=== PATIENT | male | born 1970 | race Caucasian/White ===

== ENCOUNTER 2018-06-17 12:05 | Emergency (ER) | payer OTHER, SELFPAY ==
[2018-06-17 12:07] VITALS: BP 150/90; PULSE 109; RESP 16; TEMP 36.4; O2SAT 98; BMI 27.8
[2018-06-17 13:07] VITALS: BP 138/87; PULSE 88; RESP 14; TEMP 36.8; O2SAT 98
[2018-06-17] MEDS: Cefazolin 2 GM in 0.9% Normal Saline 100 ML IV (13:07)
[2018-06-17 13:09] LABS: Absolute Lymphocyte Count 0.92 X10^3/ul (0.83-4.51); Basophil# 0.02 X10^3/uL; Basophil% 0.8 % (0-1); Eosinophil# 0.16 X10^3/uL; Eosinophils% 6.7 % (0-5); Hematocrit 40.6 % (40-54); Hemoglobin 14.1 g/dl (13.0-16.5); Lymphocyte # 0.92 X10^3/ul (4.0); Lymphocyte % 38.5 % (19-41); Mean Corp Hgb Conc 34.7 g/gl (32-36); Mean Corpuscular Hgb 34.4 pg (27.0-32.0); Monocyte# 0.28 X10^3/uL; Monocyte% 11.7 % (0-10); Neutrophil % 41.9 % (47-70); Platelet Count 54 K/mm3 (150-450); RBC Distribution Width CV 12.1 % (11.6-14.6); RBC Distribution Width SD 42.9 fl (35.1-43.9); White Blood Count 2.4 K/mm3 (4.4-11.0)
[2018-06-17 13:11] LABS: Differential Indicated SCAN CRITERIA MET; POSITIVE COUNT NO; POSITIVE DIFFERENTIAL YES; POSITIVE MORPHOLOGY NO
[2018-06-17 13:18] LABS: Anion Gap 4 (5-15); BUN 12 mg/dL (7-18); BUN/Creat Ratio 17.4 RATIO (10-20); Chloride 105 mmol/L (98-107); Creatinine, Serum 0.69 mg/dL (0.70-1.30); EST Glomerular Filtration Rate 130 mL/min (>60); Est Glom Filt Rate - Afr Amer 157 mL/min (>60); Estimated Creatinine Clearance 139.44 ml/min; Glucose 220 mg/dL (74-106); Potassium 3.6 mmol/L (3.5-5.1); Sodium Level 136 mmol/L (136-145)
[2018-06-17 13:35] LABS: Differential Comment SCANNED
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
[2018-06-17 13:51] VITALS: BP 139/88; PULSE 96; RESP 16; O2SAT 98
[2018-06-17] MEDS: Acetaminophen 500 MG Tablet 1000 MG PO (13:51)
[2018-06-17 14:27] VITALS: BP 126/85; PULSE 87; RESP 14; O2SAT 96
== END 2018-06-17 14:28 | disposition home or self-care (01) ==
PROVIDERS: Emergency Provider Emergency Medicine
DX: T23.062A Burn of unspecified degree of back of left hand, initial encounter (principal); X08.8XXA Exposure to other specified smoke, fire and flames, initial encounter; Y93.9 Activity, unspecified; Y92.9 Unspecified place or not applicable; L03.124 Acute lymphangitis of left upper limb; K21.9 Gastro-esophageal reflux disease without esophagitis; Z72.0 Tobacco use
CPT/HCPCS: 80048; 85025; 87040; 87070; 87077; 87186; 87205; 96365; 99284

== ENCOUNTER 2018-06-24 09:47 | Emergency (ER) | payer OTHER, SELFPAY ==
[2018-06-24 09:48] VITALS: BP 137/92; PULSE 105; RESP 18; TEMP 37.9; O2SAT 98; BMI 26.4
[2018-06-24 11:04] LABS: Absolute Lymphocyte Count 0.87 X10^3/ul (0.83-4.51); Absolute Neutrophil Count 0.7 X10^3/uL (2.0-7.7); Basophil# 0.03 X10^3/uL; Basophil% 1.4 % (0-1); Eosinophil# 0.31 X10^3/uL; Hematocrit 42.3 % (40-54); Hemoglobin 14.3 g/dl (13.0-16.5); Lymphocyte # 0.87 X10^3/ul (4.0); Mean Corp Hgb Conc 33.8 g/gl (32-36); Mean Corpuscular Volume 97.7 fL (80-94); Mean Platelet Vol. 12.4 fl (6.2-12.0); Monocyte# 0.19 X10^3/uL; Monocyte% 9.2 % (0-10); Neutrophil # 0.67 X10^3/uL (2.7-7.7); Neutrophil % 32.4 % (47-70); Platelet Count 59 K/mm3 (150-450); RBC Distribution Width CV 11.9 % (11.6-14.6); Red Blood Count 4.33 M/mm3 (4.6-6.2); White Blood Count 2.1 K/mm3 (4.4-11.0)
[2018-06-24 11:08] LABS: Differential Indicated SCAN CRITERIA MET; POSITIVE COUNT NO; POSITIVE DIFFERENTIAL YES; POSITIVE MORPHOLOGY NO
[2018-06-24 11:13] LABS: Anion Gap 6 (5-15); BUN 16 mg/dL (7-18); BUN/Creat Ratio 21.1 RATIO (10-20); Calcium,Total 8.2 mg/dL (8.5-10.1); Chloride 105 mmol/L (98-107); Creatinine, Serum 0.76 mg/dL (0.70-1.30); EST Glomerular Filtration Rate 116 mL/min (>60); Est Glom Filt Rate - Afr Amer 141 mL/min (>60); Glucose 171 mg/dL (74-106); Potassium 4.1 mmol/L (3.5-5.1); Sodium Level 137 mmol/L (136-145)
[2018-06-24 11:29] LABS: Lactic Acid 1.2 mmol/L (0.4-2.0)
[2018-06-24 11:55] VITALS: BP 130/83; PULSE 89; RESP 14; O2SAT 94
--- NOTE | 2018-06-24 14:29 | ED.VIS.GEN ---
History of Present Illness Chief Complaint: Rash Informant: Patient Onset: Yesterday Context: Sudden Onset Timing: Continuous Quality: Nonpruritic erythematous rash Location: Generalized Current Severity: Moderate Maximum Severity: Moderate Worsened by: Possibly Bactrim Relieved by: Nothing Associated Symptoms: URI symptoms Past Medical History - Allergies and Home Meds Allergies/Adverse Reactions: Allergies morphine Allergy (Verified 06/24/18 09:50) Hives Primary Care Physician: Care Physician,No Primary [Primary Care Provider] - Prior records reviewed: Yes - Recent visit for skin infection that was positive for MRSA Surgical History: noncontributory Lives: Alone Smoking Status: Never smoker Alcohol: Rare Review of Systems General: Reports: Malaise. Denies: Chills, Fever, Sweats, Weight loss Eyes: Denies: Visual changes - bilaterally, Blurred Vision - bilaterally, Diplopia ENT: Reports: Rhinorrhea, Sore throat. Denies: Bilateral ear pain Cardiovascular: Denies: Chest pain, Palpitations Respiratory: Reports: Cough. Denies: Dyspnea, Sputum, Dyspnea on exertion Gastrointestinal: Denies: Abdominal pain, Nausea, Vomiting, Diarrhea, Melena, Hematochezia Genitourinary: Denies: Dysuria, Hematuria, Frequency Musculoskeletal: Denies: Back pain, Extremity Pain Skin: Reports: Rash. Denies: Wounds Neurological: Denies: Headache, Weakness, Numbness Endocrine: Denies: Polyuria, Polydipsia Hematologic: Denies: Easy bruising, Easy bleeding Allergy: Denies: Uticaria, Swelling of the mouth, Swelling of the tongue Physical Exam Vital Signs/Narrative: Vital Signs Pulse Resp BP Pulse Ox 06/24/18 11:55 89 14 130/83 H 94 Inital Vital Signs reviewed: Yes General: Well nourished, Well developed, No Acute Distress Head: Normocephalic, Atraumatic Eyes: Perrl, EOMI. Negative for: Pale conjunctiva, Scleral icterus ENT: Moist mucous membranes, TM's clear, Nasal congestion, - - No mucosal lesions were noted.. Negative for: No rhinorrhea Neck: Supple, Nontender, No lymphadenopathy, No JVD Cardiovascular: Regular rate, Regular rhythm, No murmurs, Normal S1, Normal S2 Respiratory: No distress, CTA bilaterally, Chest nontender Abdomen: Soft, Nontender, Nondistended, Normal bowel sounds, No masses. Negative for: Hepatomegaly, Splenomegaly, Mass, Pulsatile mass Back: Nontender, Normal Inspection. Negative for: CVA tenderness Extremities: Nontender, No edema. Negative for: Calf Tenderness Skin: Normal color, Rash - Blanching erythematous rash that has become confluent. There is no cervical, supraclavicular, axillary or inguinal lymphadenopathy.. Negative for: Cyanosis, Diaphoresis, Jaundice Neurological: Alert, Oriented x3, Cranial nerves II-XII grossly intact, Normal Strength, Normal Sensation, Normal DTR, Normal Gait Psychological: Normal affect, Normal Mood Diagnostic/Tx/Re-eval Laboratory Results 06/24/18 06/24/18 06/24/18 10:47 10:47 10:47 WBC 2.1 L RBC 4.33 L Hgb 14.3 Hct 42.3 MCV 97.7 H MCH 33.0 H MCHC 33.8 RDW 11.9 RDW Differential 42.0 Plt Count 59 L MPV 12.4 H Immature Gran % (Auto) 0.000 Neut % (Auto) 32.4 L Lymph % (Auto) 42.[address] [place] % (Auto) 9.2 Eos % (Auto) 15.0 H Baso % (Auto) 1.4 H Absolute Neuts (auto) 0.7 L Absolute Lymphs (auto) 0.87 Total Counted Not Reportable Differential Comment COMMENT Sodium 137 Potassium 4.1 Chloride 105 Carbon Dioxide 26.0 Anion Gap 6 BUN 16 Creatinine 0.76 Estim Creat Clear Calc 126.60 Est GFR (MDRD) Af Amer 141 Est GFR (MDRD) Non-Af 116 BUN/Creatinine Ratio 21.1 H Glucose 171 H Lactic Acid 1.2 Calcium 8.2 L - Medical Decision Making Patient has respiratory-like symptoms and may be because of his fever. Suspect rash is secondary to Bactrim. Will obtain CBC, BMP and lactate to evaluate patient. Blood cultures were obtained as well. White count is 2.1 thousand with predominance of lymphocytes and eosinophilia. Electrode panel is unremarkable. Lactate was normal. Suspect the neutropenia can be caused either by the Bactrim or viral infection. With 50% eosinophilia suspect the rash is secondary to Bactrim. Plan is to treat with H1 and H2 cornelius. He was instructed not to take Bactrim in the future. His last dose was last evening. ED Disposition - Plan for ED Patient: Disposition: Home or Assisted Living Diagnosis: Allergic drug rash, Neutropenia, drug-induced, Viral respiratory infection, Fever Instructions: ED Drug React Allergic, ED Upper Resp Infec No Abx Tx Prescriptions: Famotidine [Pepcid] 20 mg PO BID #10 tab DiphenhydrAMINE [Benadryl] 25 mg PO 4X/DAY #20 cap Referrals: Care Physician,No Primary [Primary Care Provider] - Daniel Andre MD [STAFF PHYSICIAN] - 3-5 Days Additional Instructions: You should not take sulfa-containing medication in the future. Take medication prescribed until gone. Since you do not have a position and you have medical mutual insurance you were referred to Dr. Daniel Andre for follow-up.
[2018-06-24 14:52] VITALS: BP 124/85; PULSE 106; RESP 18; O2SAT 96
== END 2018-06-24 14:53 | disposition home or self-care (01) ==
PROVIDERS: Emergency Provider Emergency Medicine
DX: L27.0 Generalized skin eruption due to drugs and medicaments taken internally (principal); D70.2 Other drug-induced agranulocytosis; R50.81 Fever presenting with conditions classified elsewhere; J98.8 Other specified respiratory disorders
CPT/HCPCS: 80048; 83605; 85025; 87040; 99284; A4216

== ENCOUNTER 2023-01-03 18:33 | Emergency (ER) | payer OTHER, SELFPAY ==
[2023-01-03 18:35] VITALS: BP 133/87; PULSE 110; RESP 16; TEMP 36.2; O2SAT 98; BMI 28.5
--- NOTE | 2023-01-03 19:53 | EDS_ITS ---
HPI History of Present Illness Chief Complaint: Cellulitis Informant: patient Onset/Context/Timing Context: Gradual Onset Timing: Continuous Quality: Dull Location: Right lower leg Worsened by: Palpation Relieved by: Rest Narrative Narrative: Patient is a with redness and warmth to his right lower leg that began yesterday. Patient states it is gradually gotten worse. Patient states it feels similar to prior episode of cellulitis. Patient describes his pain as dull. Patient states it is worse with palpation. Patient states it is better with rest. Patient denies any paresthesias or weakness. Patient denies any fevers or chills. Patient denies any trauma or injury. Patient states he has a history of HIV but has had normal viral loads and CD4 counts. [facility] Medical History (Updated 01/03/23 @ 21:[address] Daniel Hardy DO) HIV (human immunodeficiency virus infection) Medical History no medical history Home Medications cephalexin 500 mg capsule 500 mg PO Q6 #40 CAPSULES 01/03/23 [Rx Last Taken Unknown] darunavir 800 mg-cobicistat 150 mg tablet (Prezcobix) 1 tab PO DAILY 01/03/23 [History Last Taken Unknown] emtricitabine 200 mg-tenofovir alafenamide fumarate 25 mg tablet (Descovy) 1 tab PO DAILY 01/03/23 [History Last Taken Unknown] lisinopril 10 mg tablet 10 mg PO DAILY 01/03/23 [History Last Taken Unknown] Allergy/AdvReac Type Severity Reaction Status Date / Time morphine Allergy Hives Verified 01/03/23 18:37 Family History no significant family his Surgical History (Updated 01/03/23 @ 19:[address] Daniel Hardy DO) Hx of arthroscopy of right knee Surgical History no surgical history Social History (Updated 01/03/23 @ 19:[address] Daniel Hardy DO) Smoking Status: Current every day smoker tobacco type: cigarettes Smoking packs per day: 1 Smoking cigarettes per day: 20.0 ROS ROS ED Constitutional Constitutional ED: Denies chills or fever(s) Eyes Eyes: Denies blurry vision or change in vision ENT ENT ED: Denies rhinorrhea or sore throat Cardiovascular Cardiovascular: Denies chest pain or palpitations Respiratory/Chest Respiratory/Chest: Denies cough or dyspnea Gastrointestinal Gastrointestinal: Denies nausea or vomiting Genitourinary Genitourinary ED: Denies dysuria or hematuria Musculoskeletal Musculoskeletal: Denies back pain or neck pain Integumentary Reports rash; Denies abscess Neurologic Neurologic: Denies headache(s) or weakness Allergic/Immunologic Allergic/Immunologic ED: Denies mouth swelling or urticaria EXAM Physical Exam Const Vital Signs: 01/03/23 18:35 01/03/23 21:27 Temperature 97.1 F L Temperature Source Temporal Pulse Rate 110 H Respiratory Rate 16 18 Blood Pressure 133/87 H Blood Pressure Mean 102 Pulse Ox 98 Oxygen Delivery Method Room Air Positive well nourished and well developed General Appearance ED: well developed and NAD HEENT Reports moist mucous membranes Neck supple and no JVD Extremity Extremity Narrative: There is erythema and warmth over the right lower leg from the mid tibia to the ankle. There is no abscess formation. There is no induration. There is no discharge or drainage. There is tenderness to palpation over the area. Pedal pulses are equal bilaterally. Sensation was intact to light touch in all digits. Capillary refill was less than 2 seconds in all digits. General Extremety ED: Yes tenderness Neuro oriented x3, CN's II-XII intact bilaterally and no sensory deficits noted Sensorium / Orientation: alert Motor Exam: strength 5/5 throughout Psych mental status grossly normal Skin no wounds MDM MDM MDM Narrative Medical decision making narrative: Differential diagnosis includes cellulitis, and sepsis. CBC will be obtained to assess for leukocytosis and anemia. Basic metabolic profile will be obtained to assess for electrolyte abnormality and renal function. Lactate will be obtained to assess for sepsis. Blood cultures will be obtained to assess for sepsis. Lab Data Attestation: I reviewed the patient's lab results. Lab results narrative: CBC was reviewed and was essentially within normal limits. Basic metabolic profile was reviewed and was normal. Serum lactate was reviewed and was normal. Labs: Laboratory Results - last 24 hr 01/03/23 20:17 WBC 8.5 RBC 5.21 Hgb 17.0 H Hct 49.4 MCV 94.8 H MCH 32.6 H MCHC 34.4 RDW Std Deviation 39.8 RDW Coeff of Garcia 11.5 L Plt Count 180 MPV 10.0 Immature Gran % (Auto) 0.500 Neut % (Auto) 67.3 Lymph % (Auto) 22.4 [place] % (Auto) 7.1 Eos % (Auto) 1.8 Baso % (Auto) 0.9 Absolute Neuts (auto) 5.7 Absolute Lymphs (auto) 1.90 Nucleated RBC % 0 Sodium 136 Potassium 3.5 Chloride 104 Carbon Dioxide 28.0 Anion Gap 4 L BUN 14 Creatinine 0.95 Estim Creat Clear Calc 95.78 Est GFR (MDRD) Af Amer 107 Est GFR (MDRD) Non-Af 88 BUN/Creatinine Ratio 14.7 Glucose 181 H Lactic Acid 0.9 Calcium 8.9 Treatment and Re-Evaluation :: Patient was given a dose of Unasyn here. Patient is feeling better on reevaluation. Patient was given a prescription for Keflex. Patient was instructed to follow-up with his primary care physician in 5 to 7 days. Patient was instructed return if worse in any way. Patient understood and was agreeable with the plan. All questions were answered. Discharge Plan Triage Chief Complaint: Cellulitis ED Provider: Daniel Hardy Dx/Rx/DC Orders Clinical Impression: Cellulitis of right lower leg Instructions: ED Cellulitis Prescriptions: New cephalexin [cephalexin] 500 mg capsule 500 mg PO Q6 Qty: 40 0RF No Action lisinopril 10 mg tablet 10 mg PO DAILY Patient Comments: take 1 tablet by mouth once daily Descovy 200-25 mg tablet 1 tab PO DAILY Prezcobix 800-150 mg-mg tablet 1 tab PO DAILY Rx Instructions: must administer with a meal/food Primary Care Provider: Care Physician,No Primary Referrals: Germaine Thompson MD [Non-Staff] - 3-5 Days Care Physician,No Primary [Primary Care Provider] - Doctor,Your [Non-Staff] - 3-5 Days Disposition Disposition: Home, Self Care
[2023-01-03 20:27] LABS: Absolute Neutrophil Count 5.7 X10^3/uL (2.0-7.7); Basophil# 0.08 X10^3/uL; Basophil% 0.9 % (0-1); Eosinophil# 0.15 X10^3/uL; Eosinophils% 1.8 % (0-5); Hematocrit 49.4 % (40-54); Lymphocyte % 22.4 % (19-41); Mean Corp Hgb Conc 34.4 g/dL (32-36); Mean Corpuscular Hgb 32.6 pg (27.0-32.0); Mean Corpuscular Volume 94.8 fL (80-94); Monocyte% 7.1 % (0-10); NRBC Flagged by Analyzer 0 % (0-5); Neutrophil # 5.73 X10^3/uL (2.7-7.7); Neutrophil % 67.3 % (47-70); Platelet Count 180 K/mm3 (150-450); RBC Distribution Width CV 11.5 % (11.6-14.6); RBC Distribution Width SD 39.8 fl (35.1-43.9); Red Blood Count 5.21 M/mm3 (4.6-6.2); White Blood Count 8.5 K/mm3 (4.4-11.0)
[2023-01-03] MEDS: Ampicillin/Sulbactam 3 GM in 0.9% Normal Saline (100mL MB+) 100 ML IV (20:37)
[2023-01-03 20:39] LABS: Anion Gap 4 (5-15); BUN 14 mg/dL (7-18); BUN/Creat Ratio 14.7 RATIO (10-20); Calcium,Total 8.9 mg/dL (8.5-10.1); Chloride 104 mmol/L (98-107); Creatinine, Serum 0.95 mg/dL (0.70-1.30); EST Glomerular Filtration Rate 88 mL/min (>60); Est Glom Filt Rate - Afr Amer 107 mL/min (>60); Estimated Creatinine Clearance 95.78 ml/min; Glucose 181 mg/dL (74-106); Potassium 3.5 mmol/L (3.5-5.1); Sodium Level 136 mmol/L (136-145)
[2023-01-03 21:27] VITALS: RESP 18
[2023-01-03 21:30] LABS: Lactic Acid 0.9 mmol/L (0.4-1.9)
[2023-01-03 21:55] VITALS: PULSE 92; RESP 18; O2SAT 98
== END 2023-01-03 21:56 | disposition home or self-care (01) ==
PROVIDERS: Emergency Provider Emergency Medicine; Visit Provider Emergency Medicine
DX: L03.115 Cellulitis of right lower limb (principal); Z21 Asymptomatic human immunodeficiency virus [HIV] infection status; F17.210 Nicotine dependence, cigarettes, uncomplicated; Z79.899 Other long term (current) drug therapy
CPT/HCPCS: 36415; 80048; 83605; 85025; 87040; 96365; 99282; J7050; A4216; J0295

== ENCOUNTER 2023-01-07 06:14 | Emergency (ER) | payer OTHER, SELFPAY ==
[2023-01-07 06:15] VITALS: BP 133/91; PULSE 97; RESP 16; TEMP 36.6; O2SAT 98; BMI 29.4
[2023-01-07 06:17] VITALS: BP 133/91; PULSE 97; RESP 18; TEMP 36.6; O2SAT 97
[2023-01-07 06:40] LABS: Absolute Lymphocyte Count 1.69 X10^3/uL (0.83-4.51); Absolute Neutrophil Count 5.1 X10^3/uL (2.0-7.7); Basophil# 0.06 X10^3/uL; Basophil% 0.8 % (0-1); Eosinophils% 2.6 % (0-5); Hematocrit 46.6 % (40-54); Hemoglobin 16.3 g/dL (13.0-16.5); Lymphocyte # 1.69 X10^3/ul (0.83-4.51); Lymphocyte % 21.8 % (19-41); Mean Corpuscular Hgb 32.8 pg (27.0-32.0); Mean Corpuscular Volume 93.8 fL (80-94); Mean Platelet Vol. 10.1 fl (6.2-12.0); Monocyte# 0.66 X10^3/uL; Monocyte% 8.5 % (0-10); NRBC Flagged by Analyzer 0 % (0-5); Neutrophil # 5.12 X10^3/uL (2.7-7.7); Platelet Count 185 K/mm3 (150-450); RBC Distribution Width CV 11.6 % (11.6-14.6); RBC Distribution Width SD 39.6 fl (35.1-43.9); Red Blood Count 4.97 M/mm3 (4.6-6.2); White Blood Count 7.8 K/mm3 (4.4-11.0)
--- NOTE | 2023-01-07 06:55 | EDS_ITS ---
HPI History of Present Illness Chief Complaint: Cellulitis Detail of Chief Complaint: Cellulitis right lower extremity Informant: patient Onset/Context/Timing Onset: Days (January 02) Context: Sudden Onset Timing: Continuous Quality: Redness and swelling right leg Location: Right leg Current Severity: Moderate Maximum Severity: Moderate Worsened by: Nothing Relieved by: Nothing Associated Symptoms Associated Symptoms: No history of symptoms Narrative Narrative: Patient is a 52-year-old male with history of HIV. He states his viral load is 0. He does not know his CD4 count. He was seen on the . He was treated with cephalexin. Review of prior record indicates history of MRSA. He denies fever, chills night sweats. He denies headache, visual, ocular auditory symptoms. He denies cardiac or respiratory symptoms. He denies GI or symptoms. He does report mild discomfort. He has been taking his cephalexin. He was prescribed 500 mg 1 every 6 hours. Prior similar symptoms: Yes Recent Illness/Hospitalization: Yes [facility] Medical History HIV (human immunodeficiency virus infection) Home Medications cephalexin 500 mg capsule 500 mg PO Q6 #40 CAPSULES 01/03/23 [Rx Last Taken Unknown] darunavir 800 mg-cobicistat 150 mg tablet (Prezcobix) 1 tab PO DAILY 01/03/23 [History Last Taken Unknown] emtricitabine 200 mg-tenofovir alafenamide fumarate 25 mg tablet (Descovy) 1 tab PO DAILY 01/03/23 [History Last Taken Unknown] lisinopril 10 mg tablet 10 mg PO DAILY 01/03/23 [History Last Taken Unknown] doxycycline monohydrate 100 mg capsule 100 mg PO BID #14 CAPSULES 01/07/23 [Rx Last Taken Unknown] Allergy/AdvReac Type Severity Reaction Status Date / Time morphine Allergy Hives Verified 01/07/23 06:15 Surgical History Hx of arthroscopy of right knee Social History Smoking Status: Current every day smoker tobacco type: cigarettes ROS ROS ED Constitutional Constitutional ED: Denies chills, fever(s), subjective, sweats or weight loss Eyes Eyes: Denies blurry vision, change in vision or diplopia ENT ENT ED: Denies ear pain, rhinorrhea or sore throat Cardiovascular Cardiovascular: Reports other Details: There is no history medic fever, heart murmur, or SBE. ; Denies chest pain or palpitations Respiratory/Chest Respiratory/Chest: Denies cough, dyspnea or dyspnea on exertion Gastrointestinal Gastrointestinal: Denies nausea or vomiting Genitourinary Genitourinary ED: Denies dysuria, hematuria or urinary frequency Musculoskeletal Musculoskeletal: Denies arthralgias, back pain or myalgias Integumentary Reports rash Neurologic Neurologic: Denies paresthesias or weakness Endocrine Endocrinology: Denies cold intolerance or heat intolerance Hematologic/Lymphatic Hematologic/Lymphatic: Reports systems reviewed and no addt'l complaints, except as documented EXAM Physical Exam Const Vital Signs: 01/07/23 06:15 01/07/23 06:17 Temperature 98 F 98 F Temperature Source Temporal Temporal Pulse Rate 97 97 Respiratory Rate 16 18 Blood Pressure 133/91 H 133/91 H Blood Pressure Mean 105 105 Pulse Ox 98 97 Positive well nourished and well developed General Appearance ED: well developed and NAD; Negative for cyanotic, diaphoretic or pallor HEENT Reports moist mucous membranes HEENT Narrative: Head is atraumatic normocephalic. Ears normal. Nares patent. Mucosa moist. Eyes PERRL and EOMs intact bilaterally General Eye ED: Negative for pale conjunctiva or scleral icterus Neck no lymphadenopathy, supple and no JVD Chest Wall inspection of chest normal and palpation of chest normal Resp normal respiratory effort and clear to auscultation bilaterally Cardio regular rate, regular rhythm, S1 normal heart sound, S2 normal heart sound and no murmurs GI normal to inspection, nondistended, normoactive bowel sounds, non-tender, non- distended and no masses; Negative for hepatosplenomegaly Palpation: soft Back/Spine no CVA tenderness Extremity Extremity Narrative: There is of the right leg. Based on what he tells me the erythema spread medially as well as laterally. The leg is erythematous. There is slight warmth. There is no induration present no lymphangitis. There is no popliteal or inguinal lymphadenopathy. Patient does have breaks in his skin which is probably the nidus for his infection. Neuro oriented x3, CN's II-XII intact bilaterally and no sensory deficits noted Sensorium / Orientation: alert Psych mental status grossly normal Skin No no rashes or lesions noted General Skin Exam: Negative for jaundice or pallor MDM MDM MDM Narrative Medical decision making narrative: Suspect patient has MRSA infection and reason he has gotten worse even though he was prescribed antibiotic. He was placed on cephalexin which does not cover MRSA. Patient states he will not stay. Patient states he can sign out AGAINST MEDICAL ADVICE. He is willing to wait for the laboratory results. We will discuss those with him and likelihood of complications if he does sign out against medical vice and declines IV antibiotics versus p.o. Lab Data Attestation: I reviewed the patient's lab results. Lab results narrative: CBC is unremarkable. Blood sugar is elevated at 200. Patient's prior electrolyte panels reveal elevated blood sugar. Patient does not have history of diabetes. Patient was told to follow-up with his doctor for further testing. Labs: Laboratory Results - last 24 hr 01/07/23 06:28 WBC 7.8 RBC 4.97 Hgb 16.3 Hct 46.6 MCV 93.8 MCH 32.8 H MCHC 35.0 RDW Std Deviation 39.6 RDW Coeff of Garcia 11.6 Plt Count 185 MPV 10.1 Immature Gran % (Auto) 0.300 Neut % (Auto) 66.0 Lymph % (Auto) 21.8 [place] % (Auto) 8.5 Eos % (Auto) 2.6 Baso % (Auto) 0.8 Absolute Neuts (auto) 5.1 Absolute Lymphs (auto) 1.69 Nucleated RBC % 0 Sodium 135 L Potassium 3.5 Chloride 104 Carbon Dioxide 28.0 Anion Gap 3 L BUN 10 Creatinine 0.90 Estim Creat Clear Calc 101.10 Est GFR (MDRD) Af Amer 114 Est GFR (MDRD) Non-Af 94 BUN/Creatinine Ratio 11.2 Glucose 200 H Lactic Acid 1.1 Calcium 8.7 Treatment and Re-Evaluation :: Patient was formed of the results. Patient was prescribed Bactrim to take in addition to the cephalexin. Discharge Plan Triage Chief Complaint: Cellulitis ED Provider: Oren Doyle Dx/Rx/DC Orders Clinical Impression: Cellulitis of right lower leg, Nondiabetic hyperglycemia Instructions: ED Cellulitis, ED Hyperglycemia New Susp Diabetes Prescriptions: New doxycycline monohydrate 100 mg capsule 100 mg PO BID Qty: 14 0RF No Action lisinopril 10 mg tablet 10 mg PO DAILY Patient Comments: take 1 tablet by mouth once daily Descovy 200-25 mg tablet 1 tab PO DAILY Prezcobix 800-150 mg-mg tablet 1 tab PO DAILY Rx Instructions: must administer with a meal/food cephalexin [cephalexin] 500 mg capsule 500 mg PO Q6 Qty: 40 0RF Primary Care Provider: Care Physician,No Primary Referrals: Care Physician,No Primary [Primary Care Provider] - Doctor,Your [Non-Staff] - 3-5 Days Activity Restrictions/Additional Instructions: 1. Discontinue the cephalexin. 2. If you develop a red streak that is going towards her groin, temperature greater than 100, shaking chills return to the emergency department. 3. If you have significant swelling, redness or significant pain return to the emergency department immediately Disposition Disposition: Home, Self Care
[2023-01-07 06:59] LABS: Anion Gap 3 (5-15); BUN 10 mg/dL (7-18); BUN/Creat Ratio 11.2 RATIO (10-20); Calcium,Total 8.7 mg/dL (8.5-10.1); Chloride 104 mmol/L (98-107); EST Glomerular Filtration Rate 94 mL/min (>60); Est Glom Filt Rate - Afr Amer 114 mL/min (>60); Glucose 200 mg/dL (74-106); Potassium 3.5 mmol/L (3.5-5.1); Sodium Level 135 mmol/L (136-145)
[2023-01-07 07:29] LABS: Lactic Acid 1.1 mmol/L (0.4-1.9)
[2023-01-07] MEDS: Doxycycline 100 MG CAPSULE PO (07:45)
== END 2023-01-07 08:09 | disposition home or self-care (01) ==
PROVIDERS: Emergency Provider Emergency Medicine; Visit Provider Emergency Medicine
DX: L03.115 Cellulitis of right lower limb (principal); Z21 Asymptomatic human immunodeficiency virus [HIV] infection status; R73.9 Hyperglycemia, unspecified; F17.210 Nicotine dependence, cigarettes, uncomplicated; Z79.899 Other long term (current) drug therapy
CPT/HCPCS: 36415; 80048; 83605; 85025; 87040; 99283

== ENCOUNTER 2023-08-31 11:42 | Emergency (ER) | payer OTHER, SELFPAY ==
[2023-08-31 11:42] VITALS: BP 126/83; PULSE 100; RESP 16; TEMP 36.1; O2SAT 97; BMI 25.8
--- NOTE | 2023-08-31 12:09 | EX.ED.DYSGE1 ---
HPI <YAW Longoria - Last Filed: 08/31/23 14:12> History of Present Illness Chief Complaint: Rash Narrative Narrative: Patient is a 52-year-old male with history of hepatitis B, HIV, diabetes who recently had his laboratory values checked and he states all is well, he is undetectable. Patient presents to the emerged department with a rash to the right lower leg. Patient states that it started 2 days ago, with a couple red dots on his foot, in the last 24 hours, it is spread from his foot all the way to his ankle just below his knee. He states it is painful on the ankle area, there is slight swelling. He denies any concerns of allergic, he denies being outside. Denies any fever or chills. PFSH <YAW Longoria - Last Filed: 08/31/23 14:12> [facility] Medical History (Updated 08/31/23 @ 13:[address] Alistair Puentes MD) Hepatitis B Diabetes HIV (human immunodeficiency virus infection) Home Medications ?Medication ?Instructions ?Recorded ?Last Taken ?Type darunavir 800 mg-cobicistat 150 mg 1 tab PO DAILY 01/03/23 08/31/23 History tablet (Prezcobix) emtricitabine 200 mg-tenofovir 1 tab PO DAILY 01/03/23 08/31/23 History alafenamide fumarate 25 mg tablet (Descovy) lisinopril 10 mg tablet 10 mg PO DAILY 01/03/23 08/31/23 History metformin 500 mg tablet 500 mg PO BID 08/31/23 08/31/23 History prednisone 10 mg tablet 10 mg PO UD #30 tabs 08/31/23 Unknown Rx sertraline 50 mg tablet 50 mg PO DAILY 08/31/23 08/31/23 History Allergy/AdvReac Type Severity Reaction Status Date / Time morphine Allergy Hives Verified 08/31/23 11:43 Surgical History Hx of arthroscopy of right knee Social History Smoking Status: Current every day smoker tobacco type: cigarettes ROS <YAW Longoria - Last Filed: 08/31/23 14:12> ROS ED ROS Narrative Constitutional: Negative for fever, chills, weight loss, weakness Eyes: Negative for vision loss, vision change, double vision ENT: Negative for any sore throat, ear pain, congestion Cardiovascular: Negative for any chest pain, tightness, palpitations Respiratory: Negative for any cough, sputum production, hemoptysis, dyspnea, dyspnea on exertion, orthopnea Gastrointestinal: Negative for any abdominal pain, nausea, vomiting, diarrhea, constipation, blood in stool, blood in vomit : Negative for any urinary frequency, dysuria, retention, blood in urine Muscle skeletal: Negative for any neck pain, back pain. Positive for right leg pain, Neurological: Negative for any headache, syncope, dizziness Skin: Negative for any itching, abrasions, lacerations. Positive for rash to the right lower extremity Psychiatric: Negative for any depression, anxiety, stress, suicidal ideation, homicidal ideation Hematologic: Negative for any excessive bruising, easy bleeding EXAM <YAW Longoria - Last Filed: 08/31/23 14:12> Physical Exam Narrative Exam Narrative: Vital signs reviewed. HEET: Head normocephalic atraumatic, TMs clear bilaterally. Posterior pharynx is clear, moist mucous membranes. Nares clear bilaterally. Neck: Supple with no lymphadenopathy or tenderness. No signs of meningismus. Cardiac: Regular rate and rhythm no murmurs gallops or rubs, equal peripheral pulses bilaterally. Respiratory: Lungs clear to auscultation bilaterally. No chest tenderness. Abdomen: Soft, nontender, nondistended. No abdominal bruit or pulsatile masses. No hepatosplenomegaly Extremities: Patient right lower leg has a petechial rash on the lateral aspect of the foot, surrounding the ankle circumferential around up to the mid calf. There is slight spots on the left foot however there is remarkable difference of the right leg. There is slight edema around the ankle. There is tenderness along the medial malleolus where the rash is most pronounced. Patient does have some varicose veins in the right lower extremity. +2 pedal pulses. There is no significant warmth. Neuro: Cranial nerves II through XII intact, no focal neurological deficits. Skin: Clean dry and intact with no rash, purpura, petechiae, vesicles or pustules. Backs/flank: No CVA tenderness, no midline spinal tenderness, no deformity. Psych: Normal mood and affect. No SI, HI or acute psychosis. Const Vital Signs: 08/31/23 11:42 08/31/23 14:13 Temperature 97 F L 97.3 F L Temperature Source Temporal Pulse Rate 100 95 Respiratory Rate 16 18 Blood Pressure 126/83 H 124/78 H Blood Pressure Mean 97 93 Pulse Ox 97 98 Oxygen Delivery Method Room Air Positive well nourished and well developed General Appearance ED: well developed <Dr. Alistair Puentes MD - Last Filed: 08/31/23 15:16> Physical Exam Const Vital Signs: 08/31/23 11:42 08/31/23 14:13 Temperature 97 F L 97.3 F L Temperature Source Temporal Pulse Rate 100 95 Respiratory Rate 16 18 Blood Pressure 126/83 H 124/78 H Blood Pressure Mean 97 93 Pulse Ox 97 98 Oxygen Delivery Method Room Air MDM <YAW Longoria - Last Filed: 08/31/23 14:12> MDM Lab Data Labs: Laboratory Results - last 24 hr 08/31/23 12:10 WBC 7.2 RBC 4.92 Hgb 14.8 Hct 43.7 MCV 88.8 MCH 30.1 MCHC 33.9 RDW Std Deviation 39.7 RDW Coeff of Garcia 12.1 Plt Count 167 MPV 10.7 Immature Gran % (Auto) 1.500 H Neut % (Auto) 59.8 Lymph % (Auto) 25.4 [place] % (Auto) 10.4 H Eos % (Auto) 2.1 Baso % (Auto) 0.8 Absolute Neuts (auto) 4.3 Absolute Lymphs (auto) 1.84 Nucleated RBC % 0 ESR 63 H PT 14.1 INR 1.1 APTT 26.7 Sodium 132 L Potassium 4.2 Chloride 97 L Carbon Dioxide 26.0 Anion Gap 9 BUN 15 Creatinine 0.89 Estim Creat Clear Calc 102.23 Est GFR (MDRD) Af Amer 115 Est GFR (MDRD) Non-Af 95 BUN/Creatinine Ratio 16.9 Glucose 247 H Calcium 9.3 Total Bilirubin 0.80 AST 21 ALT 17 Alkaline Phosphatase 174 H C-React Prot Ext Range 62.70 H Total Protein 8.4 H Albumin 2.8 L Globulin 5.6 H Albumin/Globulin Ratio 0.5 L Treatment and Re-Evaluation :: Differential diagnosis includes however is not limited to: DIC, vasculitis, cellulitis, DVT Patient appears to be in no obvious respiratory distress, patient's vital signs are stable. Patient presents to the emerged part with right lower leg rash. This rash does appear to be vascular in nature, patient will receive a CBC, CMP, PTT/PT/INR, PTT. Patient will see blood cultures. Patient will receive a DVT study the right lower extremity. Patient CBC was unremarkable, patient's platelet count was 167, sed rate was elevated at 63, PT/INR was within normal limits, chemistries show sodium 132, glucose 247, he is diabetic. Patient's alkaline phosphatase is only elevated 174. CRP was elevated at 62.7. For this finding, we did reach out to vascular however they referred her to rheumatology. Will currently talk to her cuffer. Patient's DVT study was negative. Patient placed on a prednisone taper. Patient was discharged home. Instructed return for any worsening symptoms. <Dr. Alistair Puentes MD - Last Filed: 08/31/23 15:16> [facility] Narrative Medical decision making narrative: I have personally performed a face to face assessment of the patient and have reviewed the GIROGI Note. I performed a substantive portion of the visit including all aspects of the following. My [place]ton findings include: History is red rash started on leg 1 or 2 days ago much worse this morning. Started as a red dot on his foot. It is not painful there, but a little further up at his ankle medially he has some mild pain. No systemic symptoms or fever/chills. No injury. Now he is getting a couple of spots on his left ankle, he has no pain there. History of varicose veins in the right lower extremity. Past medical history noted. Exam is petechial rash only 1 area of tenderness in the medial aspect of the right lower leg well above the malleolus and not including it. There is no soft tissue with induration or abscess palpable here. DKA are coalescing into appropriate the lateral aspect of the foot with there is no tenderness. He is neurovascular intact distally brisk cap refill. The rash is limited to the lower leg and the foot, and there are a couple of small petechia that could have easily been mistaken for red nevi on the left ankle, no tenderness there. Varicose veins on the right lower leg are nontender but present. No calf tenderness. Medical Decison Making suspect possible vasculitis. Labs will be obtained, we will also obtain blood cultures to rule out bacteremia although he does not have any Osler's nodes on his hands or heart murmur. Will obtain PT/PTT and platelets to rule out DIC. Venous duplex ultrasound of the right lower extremity is negative for DVT or SVT including varicose veins, I reviewed the images and the report which I agree with. Reviewed labs. ESR and CRP elevated with the rest of his labs normal and somewhat of a mild monocytosis. DVT negative. As above, this is consistent with vasculitis, small vs medium size vessel involvement. Discussed with Dr. Sahu with vascular, who states usually rheumatology is the specialty that should be involved first, and they can do biopsy if it ends up being requested by them. Attempted to discuss with Dr. Wade with rheumatology but we were not able to reach her, and the patient refused to wait any longer, stating that either he would leave or we can discharge him with a prescription. I am going to put him on a prednisone taper, advised to follow up with Rheumatology [facility] and return to ER if he develops fevers or other different issues. Other additions or changes: [None] Lab Data Labs: Laboratory Results - last 24 hr 08/31/23 12:10 WBC 7.2 RBC 4.92 Hgb 14.8 Hct 43.7 MCV 88.8 MCH 30.1 MCHC 33.9 RDW Std Deviation 39.7 RDW Coeff of Garcia 12.1 Plt Count 167 MPV 10.7 Immature Gran % (Auto) 1.500 H Neut % (Auto) 59.8 Lymph % (Auto) 25.4 [place] % (Auto) 10.4 H Eos % (Auto) 2.1 Baso % (Auto) 0.8 Absolute Neuts (auto) 4.3 Absolute Lymphs (auto) 1.84 Nucleated RBC % 0 ESR 63 H PT 14.1 INR 1.1 APTT 26.7 Sodium 132 L Potassium 4.2 Chloride 97 L Carbon Dioxide 26.0 Anion Gap 9 BUN 15 Creatinine 0.89 Estim Creat Clear Calc 102.23 Est GFR (MDRD) Af Amer 115 Est GFR (MDRD) Non-Af 95 BUN/Creatinine Ratio 16.9 Glucose 247 H Calcium 9.3 Total Bilirubin 0.80 AST 21 ALT 17 Alkaline Phosphatase 174 H C-React Prot Ext Range 62.70 H Total Protein 8.4 H Albumin 2.8 L Globulin 5.6 H Albumin/Globulin Ratio 0.5 L Management Discussion w/another healthcare provider: Occupational Therapy Manager Discharge Plan Triage Chief Complaint: Rash ED Midlevel Provider: Piotr Celis ED Provider: Alistair Puentes Dx/Rx/DC Orders Clinical Impression: Vasculitis Instructions: ED Henoch-Schonlein Purpura Prescriptions: New prednisone 10 mg tablet 10 mg PO UD Qty: 30 0RF Rx Instructions: Take 4 tablets daily for 3 days, then 3 daily for 3 days, then 2 daily for 3 days, then 1 a day for 3 days No Action lisinopril 10 mg tablet 10 mg PO DAILY Patient Comments: take 1 tablet by mouth once daily Descovy 200-25 mg tablet 1 tab PO DAILY Prezcobix 800-150 mg-mg tablet 1 tab PO DAILY Rx Instructions: must administer with a meal/food metformin 500 mg tablet 500 mg PO BID sertraline 50 mg tablet 50 mg PO DAILY Primary Care Provider: Darrell Banda Referrals: Louise Davidson MD [Med Staff - News Production Supervisor] - As soon as possible Darrell Banda MD [Primary Care Provider] - Print Language: Estonian Disposition Disposition: Home, Self Care Discharge Date/Time: 08/31/23 14:15
--- NOTE | 2023-08-31 12:13 | VDLE_ITS ---
Reason For Study: RLE SWELLING RIGHT GSV is normal. CFV is compressible, spontaneous, phasic, competent and demonstrates normal augmentation. FV is compressible, spontaneous, phasic, competent and demonstrates normal augmentation. POP V is compressible, spontaneous, phasic, competent and demonstrates normal augmentation. T/P Trunk is compressible. PTV is compressible. RT PerV is compressible. Procedure This is a venous duplex using B-mode, color flow and spectral Doppler. Exam performed portable in ED. A preliminary report was called and/or faxed to Vivek Guzmán Aslanides @ 12:45 pm. VL/Venous Duplex US, Unilateral Interpretation Summary Deep veins of the right lower extremity are patent and compressible segmentally . There is no evidence of right lower extremity deep vein thrombosis. Valvular competence dre ears intact within the proximal deep venous system on the right . The right great saphenous vein a ppears patent and compressible segmentally. Ordering Physician: Piotr Celis Referring Physician: Darrell Banda Performed By: Genesis Mcclain, HAMMAD, RVT
[2023-08-31 12:25] LABS: Absolute Lymphocyte Count 1.84 X10^3/uL (0.83-4.51); Absolute Neutrophil Count 4.3 X10^3/uL (2.0-7.7); Basophil# 0.06 X10^3/uL; Basophil% 0.8 % (0-1); Eosinophil# 0.15 X10^3/uL; Eosinophils% 2.1 % (0-5); Hematocrit 43.7 % (40-54); Hemoglobin 14.8 g/dL (13.0-16.5); Lymphocyte # 1.84 X10^3/ul (0.83-4.51); Lymphocyte % 25.4 % (19-41); Mean Corp Hgb Conc 33.9 g/dL (32-36); Mean Corpuscular Hgb 30.1 pg (27.0-32.0); Mean Corpuscular Volume 88.8 fL (80-94); Mean Platelet Vol. 10.7 fl (6.2-12.0); Monocyte# 0.75 X10^3/uL; Monocyte% 10.4 % (0-10); NRBC Flagged by Analyzer 0 % (0-5); Neutrophil # 4.32 X10^3/uL (2.7-7.7); Neutrophil % 59.8 % (47-70); Platelet Count 167 K/mm3 (150-450); RBC Distribution Width CV 12.1 % (11.6-14.6); RBC Distribution Width SD 39.7 fl (35.1-43.9); Red Blood Count 4.92 M/mm3 (4.6-6.2); White Blood Count 7.2 K/mm3 (4.4-11.0)
[2023-08-31 12:40] LABS: International Normalized Ratio 1.1; Prothrombin Time (Protime)PT. 14.1 SECONDS (11.7-14.9)
[2023-08-31 12:42] LABS: Partial Thromboplast Time 26.7 Seconds (24.1-36.2)
[2023-08-31 12:44] LABS: ALB/GLOB Ratio 0.5 RATIO (0.9-2.4); AST(SGOT) 21 U/L (15-37); Alanine Aminotransfer ALT/SGPT 17 U/L (16-61); Albumin, Serum 2.8 g/dL (3.2-5.0); Alkaline Phosphatase 174 U/L (45-117); Anion Gap 9 (5-15); BUN 15 mg/dL (7-18); BUN/Creat Ratio 16.9 RATIO (10-20); Calcium,Total 9.3 mg/dL (8.5-10.1); Chloride 97 mmol/L (98-107); Creatinine, Serum 0.89 mg/dL (0.70-1.30); EST Glomerular Filtration Rate 95 mL/min (>60); Est Glom Filt Rate - Afr Amer 115 mL/min (>60); Estimated Creatinine Clearance 102.23 ml/min; Globulin 5.6 g/dL (2.2-4.2); Glucose 247 mg/dL (74-106); Potassium 4.2 mmol/L (3.5-5.1); Protein, Total 8.4 g/dL (6.4-8.2); Sodium Level 132 mmol/L (136-145)
[2023-08-31 13:07] LABS: Erythrocyte Sedimentation Rate 63 mm/hr (0-20)
[2023-08-31 14:13] VITALS: BP 124/78; PULSE 95; RESP 18; TEMP 36.3; O2SAT 98
== END 2023-08-31 14:15 | disposition home or self-care (01) ==
PROVIDERS: Nurse Practitioner; Emergency Provider Emergency Medicine; PCP Family Medicine; Visit Provider Emergency Medicine
DX: L95.8 Other vasculitis limited to the skin (principal); B20 Human immunodeficiency virus [HIV] disease; E11.10 Type 2 diabetes mellitus with ketoacidosis without coma; M79.661 Pain in right lower leg; F17.210 Nicotine dependence, cigarettes, uncomplicated; Z79.84 Long term (current) use of oral hypoglycemic drugs; Z86.19 Personal history of other infectious and parasitic diseases
CPT/HCPCS: 80053; 85025; 85610; 85652; 85730; 86140; 87040; 93971; 99282; A4216

== ENCOUNTER 2023-09-11 01:17 | Inpatient (IN) | payer OTHER, SELFPAY ==
[2023-09-11] VITALS (36 sets, daily range): BP systolic 79–143; BP diastolic 52–94; PULSE 53–118; RESP 13–22; TEMP 36.1–36.9; O2SAT 92–100; BMI 25.1; BMI 24.7
--- NOTE | 2023-09-11 | ASPIGT_PTH ---
PATIENT: JOHN ESTRADA LOC: [facility] U#:[id number] AGE/SX: 52/M ROOM: [facility] RE09/11/[address]: Dr. Daniel Tompkins DO : 1970 BED: 1 DIS: 09/13/2023 SPEC #: [id number] RECD: 09/11/23 13:42 STATUS: CHACE REDaren #: [id number] LIZET: 09/11/23 00:[address]: Daniel Tompkins DEPT: SURGICAL PATHOLOGY RECD BY: Allyssa Garvin ENTERED: 09/11/23 13:42 SP TYPE: ASP RAD OTHR DR: MD Dr. Darrell Blackwell MD Tissues: Liver, NOS Procedures: FNA Specimen Adequacy Trichrome (control) Special Stain Group II Special Stain Group I PAS Stain (control) Surgery Specimen Level IV Surgery Specimen Level V Retic (control) Iron Stain (control) Imprint (control) HEADER OPERATION: CT guided liver biopsy PRE-OP DIAGNOSIS: Liver mass TISSUE SUBMITTED: 18 gauge x7 core MICROSCOPIC DIAGNOSIS Liver, CT guided core biopsy: Well differentiated hepatocellular carcinoma with a background of cirrhosis. See comment. ARI/ 09/20/2023 COMMENT The specimen is sent to [facility] for expert opinion, reviewed by Dr. Ricci and the above diagnosis is rendered. The complete report is viewable in the patient's EMR. Immunohistochemistry ([id number]) supports the above diagnosis. Iron stain with matched control show absent iron. Trichrome, reticulin, and PAS stain with and without diastase matched controls are used in evaluation of this specimen. The specimen is evaluated at the time of biopsy by Dr. Mederos. Immediate Evaluation = Set 1- Negative for malignant cells. (2 smears) Set 2- Negative for malignant cells. (1 smear) Set 3- Negative for malignant cells. (1 smear) Case has been reviewed in consultation with Dr. Garay who concurs with the above diagnosis. IDC:AM MICROSCOPIC DESCRIPTION Slides are reviewed. GROSS DESCRIPTION Received in fixative is one container labeled with the patient's name and designated Ct guided liver biopsy. The specimen consists of multiple fragments of sharma soft tissue in aggregate 2.0 x 1.0 x 0.1cm. The entire specimen is submitted in one cassette. Four touch imprints are prepared at the time of core biopsy. ARI/ 09/11/2023 TC:0 CPT:23698,35682y8, 27368, 07639 x2
--- NOTE | 2023-09-11 | IMM_PTH ---
PATIENT: JOHN ESTRADA LOC: [facility] U#:[id number] AGE/SX: 52/M ROOM: [facility] RE09/11/[address]: Dr. Daniel Tompkins DO : 1970 BED: 1 DIS: 09/13/2023 SPEC #: [id number] RECD: 09/12/23 10:54 STATUS: CHACE REQ #: [id number] LIZET: 09/11/23 00:[address]: Daniel Tompkins DEPT: IMMUNOHISTOCHEMISTRY RECD BY: Elmer Escalante ENTERED: 09/12/23 10:56 SP TYPE: IMMUNO OTHR DR: MD Dr. Darrell Blackwell MD Tissues: Liver, NOS Procedures: RCC (add) NAPSIN A (add) CK20 (add) CK5-6 (add) CK7 (add) CK8 (add) HEP PAR (add) KI-67 (add) P53 (add) TTF1 (add) Pankeratin (initial) P40 (add) PSAP (add) PHYSICIAN & [address] [address] SPECIMEN INFORMATION: Tissue Source: Liver biopsy 18 gauge x7 cores Clinical Info: Liver mass Specimen Number: [id number] CPT code: 46850,08832o19 METHODOLOGY: Deparaffinized sections of prefer/formalin-fixed tissue or PAP/DQ stained slides are incubated with monoclonal/polyclonal antibodies/oligonucleotide probes. Localization is made via biotin free immunoperoxidase method. Appropriate controls are performed and reacted as expected. Results on target cell population are indicated in the following table: RESULTS: ANTIBODY / CLONE RESULT AE1-3 (AE1/AE3/PCK26) negative CK7 (OV-TL12/30) negative CK8 (82rirdE84) negative CK20 (KS20.8) negative TTF-1 (8G7G3/1) negative Napsin A (Rabbit Polyclonal) negative HepPar (OCh1E5) positive, focal RCC (PN-15) negative PSAP (PASE/4LJ) negative CK5-6 (D5 & 1684) negative P40 (BC28) negative P53 (DO-7) positive, focal (wild type pattern) Ki-67 (30-9) positive low, ~5% These tests were developed and their performance characteristics determined by [facility]. They may not have been cleared or approved by the U.S. Food and Drug Administration. The FDA has determined that such clearance or approval is not necessary. The above immunohistochemical/dualISH markers are ordered and reviewed by the Pathologist. INTERPRETATION: Liver mass, CT guided core biopsy: Well differentiated hepatocellular carcinoma with a background of cirrhosis. See comment. ARI/ 09/20/2023 COMMENT: The specimen is sent to [facility] for expert opinion, reviewed by Dr. Lu and the above diagnosis is rendered. Case has been reviewed in consultation with Dr. Garay who concurs with the above diagnosis. IDC:AM
--- NOTE | 2023-09-11 01:29 | CT_ITS ---
STUDY: CT ABDOMEN AND PELVIS WITH CONTRAST - URINARY TRACT REASON FOR EXAM: Male, 52 years old. RLQ pain/tend RADIATION DOSAGE (If Supplied By Facility): CTDIvol = ( 15.97 ) mGy, DLP = ( 2139.46 ) mGycm TECHNIQUE: IV 100mL Isovue-370 was administered. Transaxial images were obtained from the dome of the diaphragm to the symphysis pubis in the arterial, nephrographic and excretory phases. Multiplanar coronal and sagittal images were reformatted. The protocol utilizes one or more of the following dose reduction techniques: automated exposure control, adjustment of mA and/or kV according to patient size,and/or use of iterative reconstruction technique. COMPARISON: No relevant prior comparison study available FINDINGS: The visualized lung bases are unremarkable. The visualized portions of the heart are within normal limits. There are innumerable confluent low-attenuation lesions in the right lobe of liver, the largest measures 7.5 x 5.2 cm is near the dome in segment #7 are consistent with neoplastic process likely cholangiocarcinoma. 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 There are enlarged retroperitoneal lymph nodes and tray hepatis lymph nodes, the largest lymph node is in the celiac 1.5 x 1.5 cm. Normal gallbladder and extrahepatic biliary system. Normal spleen. Normal pancreas. Normal bilateral adrenal glands. Normal visualized stomach. Normal small intestine. Normal colon. The appendix is visualized and appears normal. Normal abdominal aorta. There are bilateral renal cysts, the largest measures 4 cm and the left kidney. Normal urinary bladder. Normal abdominal wall. Normal osseous structures. CT/Abdomen/Pelvis W IV Cont ONLY IMPRESSION: 1 - default normal Electronically Signed: Juan Medina MD at 3:47 EDT ,
--- NOTE | 2023-09-11 01:31 | ED.VIS.GI ---
HPI HPI - GI History of Present Illness Chief Complaint: Abd Pain Informant: patient Abdominal Pain/Flank Pain Onset: Days (2-3) Context: Gradual Onset Timing: Continuous Quality: Aching and Sharp Location: - (Across lower abdomen worse on the right) Current Severity: Severe Maximum Severity: Severe Worsened by: Car ride Relieved by: Nothing Nausea/Vomiting/Emesis GI Symptom: Negative for Nausea or Vomiting Diarrhea/Melena/Hematochezia GI Symptom: Positive for - (Feels constipated like he needs to have a bowel movement but is unable. No blood.); Negative for Diarrhea, Melena or Hematochezia Associated Symptoms Associated Symptoms: Negative for Dysuria, Frequency, Hematuria or Urgency Narrative Narrative: 52-year-old male has been having lower abdominal pain gradually worsening over the last few days. Feels like he may be constipated but is tried enemas and laxatives at home and they have not helped anything. No fevers, back pain, nausea or vomiting. No history of any abdominal surgeries. Patient was here 1 or 2 weeks ago for a rash on his legs that we diagnosed as vasculitis, and put him on prednisone. He states it fixed it and his legs are back to normal. He is no longer taking the prednisone. [facility] Medical History Hepatitis B Diabetes HIV (human immunodeficiency virus infection) Home Medications ?Medication ?Instructions ?Recorded ?Last Taken ?Type darunavir 800 mg-cobicistat 150 mg 1 tab PO DAILY HEPATITIS B 01/03/23 08/31/23 History tablet (Prezcobix) emtricitabine 200 mg-tenofovir 1 tab PO DAILY HIV 01/03/23 08/31/23 History alafenamide fumarate 25 mg tablet (Descovy) lisinopril 10 mg tablet 10 mg PO DAILY 01/03/23 08/31/23 History metformin 500 mg tablet 500 mg PO BID 08/31/23 08/31/23 History prednisone 10 mg tablet 10 mg PO UD #30 tabs 08/31/23 Unknown Rx sertraline 50 mg tablet 50 mg PO DAILY 08/31/23 08/31/23 History Allergy/AdvReac Type Severity Reaction Status Date / Time morphine Allergy Hives Verified 09/11/23 01:18 Surgical History Hx of arthroscopy of right knee Social History Smoking Status: Heavy Smoker (>10/day) ROS ROS ED Constitutional Constitutional ED: Denies chills or fever(s) Eyes Eyes: Denies change in vision or diplopia ENT ENT ED: Denies rhinorrhea or sore throat Cardiovascular Cardiovascular: Denies chest pain or palpitations Respiratory/Chest Respiratory/Chest: Denies cough or dyspnea Gastrointestinal Gastrointestinal: Reports as per HPI, abdominal pain and constipation; Denies diarrhea, melena, nausea or vomiting Genitourinary Genitourinary ED: Denies dysuria or hematuria Musculoskeletal Musculoskeletal: Denies back pain or neck pain Integumentary Denies abscess or rash Neurologic Neurologic: Denies headache(s), paresthesias or weakness Psychiatric Psychiatric: Denies anxiety or suicidal thoughts EXAM Physical Exam Const Vital Signs: 09/11/23 01:19 09/11/23 03:17 09/11/23 04:25 Temperature 97.8 F Temperature Source Temporal Pulse Rate 97 90 94 Respiratory Rate 22 H 17 18 Blood Pressure 138/94 H 111/85 H 123/64 H Blood Pressure Mean 108 93 83 Pulse Ox 98 95 Oxygen Delivery Method Room Air Room Air Room Air 09/11/23 06:00 09/11/23 06:45 Temperature 98.1 F Temperature Source Oral Pulse Rate 84 90 Respiratory Rate 17 18 Blood Pressure 143/85 H 114/90 H Blood Pressure Mean 104 98 Pulse Ox 93 98 Oxygen Delivery Method Room Air Room Air Positive well nourished and well developed Constitutional Narrative: In no distress but uncomfortable holding his abdomen and pain. General Appearance ED: well developed HEENT Reports moist mucous membranes normocephalic and atraumatic Eyes PERRL and EOMs intact bilaterally Neck full ROM and supple Resp normal respiratory effort and clear to auscultation bilaterally Cardio regular rate, regular rhythm and no murmurs GI non-distended GI Narrative: Tender in the right lower quadrant around McBurney's point, no guarding or rebound, no other areas of abdominal tenderness. Negative Rovsing. No upper abdominal tenderness. Auscultation: normoactive bowel sounds Palpation: soft Back/Spine no CVA tenderness General Back: other FROM Extremity normal to inspection General Extremety ED: Negative for edema, pulses abnormal or tenderness General Extremity: Negative for edema or pulses abnormal Neuro oriented x3, CN's II-XII intact bilaterally and no sensory deficits noted Sensorium / Orientation: awake and alert Motor Exam: strength 5/5 throughout Skin no rashes or lesions noted and no wounds MDM MDM MDM Narrative Medical decision making narrative: Given the patient is already tried home remedies for constipation I think performing workup including the CT to evaluate for the possibility of appendicitis is warranted. Discussed this with him and offered pain medications as well as IV fluids while obtaining testing. Even after more pain medications, patient was still in a lot of discomfort. In reviewing the lab results and the CT, I reviewed the images and report which I agree with, he appears to have multiple lesions in the liver suspicious for metastases, as well as tumor invasion into the portal vein with occlusion, and my concern is that his pain is related to the portal vein occlusion and mesenteric congestion. His total bilirubin is elevated and that is new, 1.8. I discussed with surgery, he refers to GI for consultation. I discussed with Dr. Calhoun. He states the patient does not need an ERCP necessarily since there is no CT evidence of a biliary obstruction, but he is going to need more diagnostics such as possible MRI, possible interventional radiology CT-guided biopsy of 1 of these lesions, but unlikely surgical intervention for the portal vein occlusion. He suspects the patient will need anticoagulated in the same fashion as if there was thrombosis. In wanting to consult with vascular surgery, I had to wait a couple of hours for morning shift when they would become available. In discussing with Dr. Sahu with vascular he agrees that placing the patient on heparin is indicated and recommended, that way we can temporarily discontinue it in order to obtain a biopsy if and when desired. He also agrees that generally speaking if this appears to be some type of metastatic cancer without a biliary obstruction, he would not need surgical oncology emergently, and since his pain is intractable the plan is admission. Discussed with hospitalist. Lab Data Attestation: I reviewed the patient's lab results. Labs: Laboratory Results - last 24 hr 09/11/23 09/11/23 01:34 02:01 WBC 9.9 RBC 4.56 L Hgb 13.7 Hct 41.9 MCV 91.9 MCH 30.0 MCHC 32.7 RDW Std Deviation 41.2 RDW Coeff of Garcia 12.5 Plt Count 175 MPV 11.5 Immature Gran % (Auto) 0.400 Neut % (Auto) 70.9 H Lymph % (Auto) 16.6 L [place] % (Auto) 10.1 H Eos % (Auto) 1.4 Baso % (Auto) 0.6 Absolute Neuts (auto) 7.0 Absolute Lymphs (auto) 1.65 Nucleated RBC % 0 Sodium 130 L Potassium 4.1 Chloride 97 L Carbon Dioxide 28.0 Anion Gap 5 BUN 14 Creatinine 0.82 Estim Creat Clear Calc 110.96 Est GFR (MDRD) Af Amer 125 Est GFR (MDRD) Non-Af 104 BUN/Creatinine Ratio 17.0 Glucose 391 H Calcium 8.9 Total Bilirubin 1.80 H AST 18 ALT 21 Alkaline Phosphatase 121 H Total Protein 8.0 Albumin 2.8 L Globulin 5.2 H Albumin/Globulin Ratio 0.5 L Urine Color Yellow Urine Clarity Clear Urine pH 5.0 Ur Specific [place] 1.015 Urine Protein Negative Urine Glucose (UA) 1000 H Urine Ketones Negative Urine Occult Blood 150 H Urine Nitrite Negative Urine Bilirubin Negative Urine Urobilinogen Normal Ur Leukocyte Esterase Negative Urine RBC 0 SEEN Urine WBC 0 SEEN Ur Squamous Epith Cells 0 SEEN Urine Bacteria 0 SEEN Urine Mucus 0 SEEN Radiography Diagnostic Testing: Clinical Impression(s) from Imaging Studies Abdomen/Pelvis CT 09/11/23 01:29 IMPRESSION: 1 - default normal Electronically Signed: Juan Medina MD at 3:47 EDT , ADDENDUM: 09/11/23 0896 IMPRESSION: There are innumerable confluent low-attenuation lesions in the right lobe of liver, the largest measures 7.5 x 5.2 cm is near the dome in segment #7 are consistent with neoplastic process likely cholangiocarcinoma. 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 There are enlarged retroperitoneal lymph nodes and tray hepatis lymph nodes, the largest lymph node is in the celiac 1.5 x 1.5 cm. Electronically Signed: Juan Medina MD at 4:02 EDT , Management Discussion w/another healthcare provider: Hospitalist and Cleaner Operator (Surgery Avani; GI friend; vascular [place]; IR LIBRARY PAGE) Discharge Plan Dx/Rx/DC Orders Clinical Impression: Intractable lower abdominal pain, Liver masses, Portal vein obstruction, Acquired hyperbilirubinemia Disposition Disposition: Acute Care Hospital [facility]
[2023-09-11] MEDS: Ondansetron 4 MG/2 ML Vial IV ×2 (01:43→19:29)
[2023-09-11] MEDS: fentaNYL 100 MCG/2 ML Ampul 50 MCG IV (01:43)
[2023-09-11 01:48] LABS: Absolute Lymphocyte Count 1.65 X10^3/uL (0.83-4.51); Basophil# 0.06 X10^3/uL; Basophil% 0.6 % (0-1); Eosinophil# 0.14 X10^3/uL; Eosinophils% 1.4 % (0-5); Hematocrit 41.9 % (40-54); Hemoglobin 13.7 g/dL (13.0-16.5); Lymphocyte # 1.65 X10^3/ul (0.83-4.51); Lymphocyte % 16.6 % (19-41); Mean Corp Hgb Conc 32.7 g/dL (32-36); Mean Corpuscular Volume 91.9 fL (80-94); Mean Platelet Vol. 11.5 fl (6.2-12.0); Monocyte% 10.1 % (0-10); NRBC Flagged by Analyzer 0 % (0-5); Neutrophil # 7.03 X10^3/uL (2.7-7.7); Neutrophil % 70.9 % (47-70); Platelet Count 175 K/mm3 (150-450); RBC Distribution Width CV 12.5 % (11.6-14.6); RBC Distribution Width SD 41.2 fl (35.1-43.9); Red Blood Count 4.56 M/mm3 (4.6-6.2); White Blood Count 9.9 K/mm3 (4.4-11.0)
[2023-09-11] MEDS: 0.9% Normal Saline (1000mL) 1,000 ML 125 ML IV (02:01)
[2023-09-11 02:02] LABS: ALB/GLOB Ratio 0.5 RATIO (0.9-2.4); AST(SGOT) 18 U/L (15-37); Alanine Aminotransfer ALT/SGPT 21 U/L (16-61); Albumin, Serum 2.8 g/dL (3.2-5.0); Alkaline Phosphatase 121 U/L (45-117); Anion Gap 5 (5-15); BUN 14 mg/dL (7-18); Calcium,Total 8.9 mg/dL (8.5-10.1); Chloride 97 mmol/L (98-107); Creatinine, Serum 0.82 mg/dL (0.70-1.30); EST Glomerular Filtration Rate 104 mL/min (>60); Est Glom Filt Rate - Afr Amer 125 mL/min (>60); Estimated Creatinine Clearance 110.96 ml/min; Globulin 5.2 g/dL (2.2-4.2); Glucose 391 mg/dL (74-106); Potassium 4.1 mmol/L (3.5-5.1); Sodium Level 130 mmol/L (136-145)
[2023-09-11 02:08] LABS: Bacteria 0 SEEN /hpf (None Seen); Mucous, Urine 0 SEEN /hpf (<or=2+); Red Blood Cells-Urine 0 SEEN /hpf (0-5); Squamous Epithelial Cells - UA 0 SEEN /hpf (0-5); White Blood Cells 0 SEEN /hpf (0-5)
[2023-09-11 02:11] LABS: Color, Urine Yellow (Yellow); Glucose, Dipstick 1000 mg/dl (Normal); Ketone-Dipstick Negative (Negative); Leukocyte Esterase-Dipstick Negative /ul (Negative); Nitrite-Dipstick Negative (Negative); Occult Blood-Urine 150 /ul (Negative); Protein-Dipstick Negative (Negative); Specific Gravity, Urine 1.015 (1.002-1.030); Urine Bilirubin Dipstick Negative (Negative); Urine Clarity Clear (Clear); Urine Urobilinogen Normal (Normal)
[2023-09-11] MEDS: Ketorolac 15 MG/ML Vial IV (03:21)
[2023-09-11] MEDS: HYDROmorphone 1 MG/ML Syringe IV ×2 (04:23→22:23)
[2023-09-11] MEDS: HYDROmorphone 1 MG/ML Syringe 2 MG IV (06:37)
[2023-09-11] MEDS: Heparin Injection (Vial) 5,000 UNIT/ML VIAL 6000 UNIT IV (07:50)
[2023-09-11] MEDS: HEPARIN/D5w 25,000 UNITS 25,000 UNITS/250 ML IV.SOLN. 12 UNITS CONT INF (07:50)
[2023-09-11 08:10] LABS: International Normalized Ratio 1.1; Prothrombin Time (Protime)PT. 14.5 SECONDS (11.7-14.9)
[2023-09-11 08:11] LABS: Partial Thromboplast Time 27.1 Seconds (24.1-36.2)
--- NOTE | 2023-09-11 08:13 | HP.PCM.HOS_ITS ---
[facility] - General General Date of Service: 09/11/23 Chief Complaint: abdominal pain HPI Narrative JOHN ESTRADA, is a 52 M who presents with abdominal pain. Patient has been having intermittent twinges of abdominal pain throughout his abdomen for some time now. But on Sunday, he started having worsening abdominal pain, describing it more in his right lower quadrant to right mid abdomen but that today it was more prominent in the right upper quadrant. Was so severe that he sought attention in the emergency room. Patient had a CAT scan that showed confluent low- attenuation lesions in the right lobe of the liver, largest measuring 7.5 x 5.2 cm in the near dome consistent with a neoplastic process, likely cholangiocarcinoma. Tumor extension into the portal vein with complete occlusion of the main portal vein. The ED physician spoke with general surgery who deferred to gastroenterology. Gastroenterology was recommending a CT-guided biopsy rather than ERCP for cholangiocarcinoma. Vascular surgery was contacted and recommended anticoagulation for the portal vein obstruction. Patient states that he was having a lot of abdominal pain that he would have to be prone on his knees which she developed some rug leary on his knees. [facility] Medical History Hepatitis B Diabetes HIV (human immunodeficiency virus infection) Home Medications ?Medication ?Instructions ?Recorded ?Last Taken ?Type darunavir 800 mg-cobicistat 150 mg 1 tab PO DAILY HEPATITIS B 01/03/23 08/31/23 History tablet (Prezcobix) emtricitabine 200 mg-tenofovir 1 tab PO DAILY HIV 01/03/23 08/31/23 History alafenamide fumarate 25 mg tablet (Descovy) lisinopril 10 mg tablet 10 mg PO DAILY 01/03/23 08/31/23 History metformin 500 mg tablet 500 mg PO BID 08/31/23 08/31/23 History prednisone 10 mg tablet 10 mg PO UD #30 tabs 08/31/23 Unknown Rx sertraline 50 mg tablet 50 mg PO DAILY 08/31/23 08/31/23 History Allergy/AdvReac Type Severity Reaction Status Date / Time morphine Allergy Hives Verified 09/11/23 01:18 Family History (Updated 09/11/23 @ 08:[address] Daniel Tompkins DO) Father Cancer Surgical History Hx of arthroscopy of right knee Social History (Updated 09/11/23 @ 08:[address] Daniel Tompkins DO) Smoking Status: Heavy Smoker (>10/day) alcohol intake: former ROS ROS Narrative All review of systems were negative except as mentioned above in the history of present illness and the other review of systems. Vital Signs Vital Signs Vital Signs: 09/11/23 01:19 09/11/23 03:17 09/11/23 04:25 Temperature 36.6 C Temperature Source Temporal Pulse Rate 97 90 94 Respiratory Rate 22 H 17 18 Blood Pressure 138/94 H 111/85 H 123/64 H Blood Pressure Mean 108 93 83 Pulse Ox 98 95 Oxygen Delivery Method Room Air Room Air Room Air 09/11/23 06:00 09/11/23 06:45 09/11/23 08:00 Temperature 36.7 C Temperature Source Oral Pulse Rate 84 90 95 Respiratory Rate 17 18 16 Blood Pressure 143/85 H 114/90 H 119/91 H Blood Pressure Mean 104 98 100 Pulse Ox 93 98 95 Oxygen Delivery Method Room Air Room Air Room Air 09/11/23 08:00 Temperature 36.9 C Temperature Source Pulse Rate 95 Respiratory Rate 16 Blood Pressure 119/71 Blood Pressure Mean 87 Pulse Ox 95 Oxygen Delivery Method Weight Weight: 81.8 kg Body Mass Index (BMI) 25.1 Physical Exam Const alert Constitutional Narrative: Nontoxic. Afebrile. No jaundice. HEENT normocephalic and head/scalp atraumatic Eyes Eyes Narrative: No icterus. Neck no lymphadenopathy Neck Narrative: No thyromegaly. Resp normal respiratory effort, no retractions, no use of accessory muscles and clear to auscultation bilaterally Cardio regular rate, regular rhythm, S1 normal heart sound and S2 normal heart sound GI GI Narrative: Marked hepatomegaly roughly 3 cm below the costal margin. Normal bowel sounds. Extremity normal to inspection and no clubbing, cyanosis or edema Skin Skin Narrative: Does have some abrasions on his knees. Neuro moves all extremities and no focal motor deficits Sensorium / Orientation: awake and alert Speech: speech normal Psych affect normal Results Lab / Micro Data Attestation: I reviewed the patient's lab results. 09/11/23 01:34 09/11/23 01:34 Labs: Laboratory Results - last 24 hr 09/11/23 01:34: WBC 9.9, RBC 4.56 L, Hgb 13.7, Hct 41.9, MCV 91.9, MCH 30.0, MCHC 32.7, RDW Std Deviation 41.2, RDW Coeff of Garcia 12.5, Plt Count 175, MPV 11.5, Immature Gran % (Auto) 0.400, Neut % (Auto) 70.9 H, Lymph % (Auto) 16.6 L, [place] % (Auto) 10.1 H, Eos % (Auto) 1.4, Baso % (Auto) 0.6, Absolute Neuts (auto) 7.0, Absolute Lymphs (auto) 1.65, Nucleated RBC % 0, Sodium 130 L, Potassium 4.1, Chloride 97 L, Carbon Dioxide 28.0, Anion Gap 5, BUN 14, Creatinine 0.82, Estim Creat Clear Calc 110.96, Est GFR (MDRD) Af Amer 125, Est GFR (MDRD) Non-Af 104, BUN/Creatinine Ratio 17.0, Glucose 391 H, Calcium 8.9, Total Bilirubin 1.80 H, AST 18, ALT 21, Alkaline Phosphatase 121 H, Total Protein 8.0, Albumin 2.8 L, Globulin 5.2 H, Albumin/Globulin Ratio 0.5 L 09/11/23 02:01: Urine Color Yellow, Urine Clarity Clear, Urine pH 5.0, Ur Specific [place] 1.015, Urine Protein Negative, Urine Glucose (UA) 1000 H, Urine Ketones Negative, Urine Occult Blood 150 H, Urine Nitrite Negative, Urine Bilirubin Negative, Urine Urobilinogen Normal, Ur Leukocyte Esterase Negative, Urine RBC 0 SEEN, Urine WBC 0 SEEN, Ur Squamous Epith Cells 0 SEEN, Urine Bacteria 0 SEEN, Urine Mucus 0 SEEN 09/11/23 07:28: PT 14.5, INR 1.1, APTT 27.1 Imaging Radiology Impression Abdomen/Pelvis CT 09/11/23 01:29 IMPRESSION: 1 - default normal Electronically Signed: Juan Medina MD at 3:47 EDT , ADDENDUM: 09/11/23 0409 IMPRESSION: There are innumerable confluent low-attenuation lesions in the right lobe of liver, the largest measures 7.5 x 5.2 cm is near the dome in segment #7 are consistent with neoplastic process likely cholangiocarcinoma. 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 There are enlarged retroperitoneal lymph nodes and tray hepatis lymph nodes, the largest lymph node is in the celiac 1.5 x 1.5 cm. Electronically Signed: Juan Medina MD at 4:02 EDT , Assessment & Plan Assessment/Plan (1) Liver masses: (2) Portal vein obstruction: PLAN: Plan Liver masses * Concern for neoplastic process. Possibilities include hepatocellular carcinoma, colon cancer, cholangiocarcinoma amongst many other possibilities. * Plan is for CT-guided biopsy which is scheduled for 1200 today. * Check CEA, CA 19-9 tumor markers * Consult gastroenterology. * Discussed with the patient that biopsy results will take roughly about a week to get back and he will need to follow-up with oncology as outpatient to get further staging. Portal vein obstruction * Secondary liver masses * Plan is to initiate anticoagulation. Patient did receive part of his bolus in the emergency room but that was discontinued so that he may have the biopsy. They will be resumed after appropriately safe time after the biopsy * No plans for surgery but will consult vascular surgery for recommendations. Abdominal pain * Likely secondary to above as no other etiology was identified on the CAT scan. * Pain control. Hepatitis B: continue with emtricitabine/tenofovir HIV: Continue with darunavir/Cobicistat. Follow-up with infectious disease at [facility] Diabetes mellitus type 2 * Recently diagnosed * Hold metformin for now * Sliding scale insulin * Check an A1c VTE prophylaxis: Not indicated as patient will be anticoagulated. Charges/Coding Visit Charges Inpatient E&M: 03813 Init Hosp L3
[2023-09-11] MEDS: 0.9% Saline Lock 10 ML Syringe IV ×4 (09:31→22:23)
[2023-09-11] MEDS: HYDROmorphone Inj 0.2 MG/ML SYRINGE IV ×3 (09:31→19:29)
[2023-09-11 10:03] LABS: Hemoglobin A1c 11.2 % (3.8-5.6)
[2023-09-11] MEDS: oxyCODONE 5 MG Tablet 10 MG PO ×2 (10:23→18:06)
[2023-09-11] MEDS: Lisinopril 10 MG Tablet PO (10:23)
[2023-09-11] MEDS: Insulin Lispro 100 UNIT/ML INSULN.PEN SC ×2 (10:27→17:05)
[2023-09-11 11:20] LABS: Bedside Glucose 261 mg/dL (74-106)
[2023-09-11] MEDS: Midazolam 2 MG/2 ML Syringe IV (12:16)
[2023-09-11] MEDS: 0.9% Normal Saline (250mL Bag) 250 ML 15 ML IV (12:21)
[2023-09-11] MEDS: fentaNYL 100 MCG/2 ML Ampul IV ×3 (12:22→12:52)
[2023-09-11] MEDS: Lidocaine 2% (20 ml mdv) 20 ML Vial INFILT (12:40)
--- NOTE | 2023-09-11 13:03 | PRO.PCM_ITS ---
Procedure Report Date of Procedure: 09/11/23 Assessment & Plan Assessment/Plan (1) Liver masses: PLAN: PROCEDURE: CT DIRECTED CORE LIVER BIOPSY ORDERING PROVIDER: Dr. Tompkins INDICATION: Male, 52 years old. Liver masses. PROVIDER: CELINE Calzada CONSENT: Written informed consent was obtained having explained the risks, benefits and alternatives in detail with the patient who accepted the risks and agreed to proceed. Laboratory review and clinical assessment was performed. PRE-PROCEDURE SEDATION ASSESSMENT: Current history and physical dictated by referring provider and reviewed. No clinical changes since date of exam. Patient has an ASA Class of 2. PROCEDURAL SEDATION PROTOCOL: The Drugs used were: 2 mg Versed, IV, and 75 mcg Fentanyl, IV. The sedation time was: 42 minutes, starting at 1216 and terminated at 1258. The procedural sedation protocol was independently monitored by the department nurse. RADIATION DOSAGE (If Supplied By Facility): CTDIvol = 20.43 mGy, DLP = 1202.21 mGycm Individualized dose optimization techniques were used for this CT. TECHNIQUE: The patient was placed in a supine position, with right side propped. Using CT image guidance with image documentation, a suitable location in the right lobe of the liver was identified to target previously identified masses. The skin surface was prepped with betadine and draped in a sterile fashion. 2% lidocaine was used for local anesthesia. Using a lateral approach, puncture of the liver was uneventful with an 18-gauge core needle system. 7, 18-gauge core samples were obtained, and submitted in formalin to the pathologist for further asse ssment. Pathology was also present to analyze samples for tissue confirmation. The needle was removed. An occlusive sterile dressing was applied. Patient tolerated the procedure well, and returned to the holding bay for nursing monitoring. IMPRESSION: 1. CT directed core needle biopsy of the liver mass, using CT image guidance with image documentation as described. 2. Procedural Sedation protocol utilized with independent monitoring. Procedures Radiology Radiology CT Procedures: 52208 Biopsy Liver Multi Select Codes Radiology Radiology CT Procedures: [id number] CT guidance parenchymal tissue
--- NOTE | 2023-09-11 13:17 | CT_ITS ---
STUDY: CT ABDOMEN WITHOUT CONTRAST REASON FOR EXAM: Male, 52 years old. Hypotension s/p liver biopsy RADIATION DOSAGE (If Supplied By Facility): CTDIvol = ( 11.57 ) mGy, DLP = ( 537.44 ) mGycm TECHNIQUE: Transaxial images were obtained without intravenous contrast, and without oral contrast. Sagittal and coronal images were reconstructed. Individualized dose optimization techniques were used for this CT. COMPARISON: Comparison is made with prior study dated September 11, 2023 at 2:27 AM. FINDINGS: The patient is status post right liver biopsy. There now is evidence of a small right hepatic subcapsular hematoma. Follow-up recommended. CT/Abdomen without IV Contrast IMPRESSION: Small right hepatic subcapsular hematoma following percutaneous biopsy. Follow-up recommended. The patient is stable. Electronically Signed: Fabian Garza MD at 13:40 EDT ,
[2023-09-11] MEDS: fentaNYL 100 MCG/2 ML Ampul 25 MCG IV (13:33)
[2023-09-11] MEDS: Ketorolac 30 MG/ML Syringe IV (14:08)
[2023-09-11] MEDS: Acetaminophen 325 MG Tablet 650 MG PO (16:26)
[2023-09-11 16:51] LABS: Bedside Glucose 324 mg/dL (74-106)
[2023-09-11] MEDS: Mag Hydrox/Al Hydrox/Simeth 30 ML UDC PO (21:15)
[2023-09-11 21:34] LABS: Bedside Glucose 301 mg/dL (74-106)
[2023-09-12] VITALS (10 sets, daily range): BP systolic 75–102; BP diastolic 45–66; PULSE 69–120; RESP 14–20; TEMP 36.6–36.9; O2SAT 94–98
[2023-09-12] MEDS: HYDROmorphone 1 MG/ML Syringe IV ×3 (02:54→11:18)
[2023-09-12] MEDS: 0.9% Saline Lock 10 ML Syringe IV ×2 (02:54→06:55)
[2023-09-12] MEDS: Insulin Lispro 100 UNIT/ML INSULN.PEN SC ×3 (06:23→16:41)
[2023-09-12 06:43] LABS: Absolute Lymphocyte Count 1.58 X10^3/uL (0.83-4.51); Absolute Neutrophil Count 12.4 X10^3/uL (2.0-7.7); Basophil# 0.05 X10^3/uL; Basophil% 0.3 % (0-1); Eosinophil# 0.14 X10^3/uL; Eosinophils% 0.9 % (0-5); Hematocrit 39.3 % (40-54); Hemoglobin 12.8 g/dL (13.0-16.5); Lymphocyte # 1.58 X10^3/ul (0.83-4.51); Lymphocyte % 10.2 % (19-41); Mean Corp Hgb Conc 32.6 g/dL (32-36); Mean Corpuscular Hgb 30.4 pg (27.0-32.0); Mean Corpuscular Volume 93.3 fL (80-94); Mean Platelet Vol. 11.2 fl (6.2-12.0); Monocyte# 1.27 X10^3/uL; Monocyte% 8.2 % (0-10); NRBC Flagged by Analyzer 0 % (0-5); Neutrophil # 12.42 X10^3/uL (2.7-7.7); Neutrophil % 79.9 % (47-70); Platelet Count 266 K/mm3 (150-450); RBC Distribution Width CV 12.8 % (11.6-14.6); RBC Distribution Width SD 44.1 fl (35.1-43.9); Red Blood Count 4.21 M/mm3 (4.6-6.2); White Blood Count 15.5 K/mm3 (4.4-11.0)
[2023-09-12 06:47] LABS: Bedside Glucose 302 mg/dL (74-106)
[2023-09-12] MEDS: Lisinopril 10 MG Tablet PO (08:29)
[2023-09-12] MEDS: oxyCODONE 5 MG Tablet 10 MG PO (08:29)
--- NOTE | 2023-09-12 08:59 | PN.HOSP_ITS ---
Reason for Visit Reason for Visit: Diagnoses Portal vein thrombosis (09/11/23) Hepatomegaly, not elsewhere classified (09/11/23) Subjective Subjective Still having a lot of pain in RUQ. Hydromorphone helps, but wears off quickly. Mostly in pain, 09/16. Objective Data Objective Data Vital Signs: Vital Signs Temp Pulse Resp BP Pulse Ox O2 Del Method O2 Flow Rate 36.6 C 120 H 18 102/59 L 96 Room Air 2 09/12/23 08:28 09/12/23 08:28 09/12/23 08:28 09/12/23 08:28 09/12/23 08:28 09/12/23 08:28 09/11/23 13:15 Oxygen Flow Rate (L/min) 2 Oxygen Delivery Method Room Air Weight: 80.4 kg Body Mass Index (BMI) 24.7 Intake & Output: Intake and Output for Last 24 Hours 09/10/23 09/11/23 09/12/23 23:59 23:59 23:59 Intake Total 1019.1 / 1019.1 Balance 1019.1 / 1019.1 Lab / Micro Data 09/12/23 06:10 09/12/23 06:10 Labs: Laboratory Results - last 24 hr 09/11/23 01:34: Hemoglobin A1c 11.2 H 09/11/23 10:26: POC Glucose 261 H 09/11/23 16:24: POC Glucose 324 H 09/11/23 21:14: POC Glucose 301 H 09/12/23 06:10: WBC 15.5 H, RBC 4.21 L, Hgb 12.8 L, Hct 39.3 L, MCV 93.3, MCH 30.4, MCHC 32.6, RDW Std Deviation 44.1 H, RDW Coeff of Garcia 12.8, Plt Count 266, MPV 11.2, Immature Gran % (Auto) 0.500, Neut % (Auto) 79.9 H, Lymph % (Auto) 10.2 L, [place] % (Auto) 8.2, Eos % (Auto) 0.9, Baso % (Auto) 0.3, Absolute Neuts (auto) 12.4 H, Absolute Lymphs (auto) 1.58, Nucleated RBC % 0 09/12/23 06:22: POC Glucose 302 H Radiography Diagnostic Testing: Radiology Impression Abdomen CT 09/11/23 13:17 IMPRESSION: Small right hepatic subcapsular hematoma following percutaneous biopsy. Follow-up recommended. The patient is stable. Electronically Signed: Fabian Garza MD at 13:40 EDT , Physical Exam Const alert Constitutional Narrative: uncomfortable. non-toxic. afebrile. HEENT head/scalp atraumatic and moist oral mucous membranes Resp normal respiratory effort and no retractions GI GI Narrative: hepatomegaly. ecchymosis noted a right posterior lower back. Neuro Sensorium / Orientation: awake and alert Assessment & Plan Assessment/Plan (1) Liver masses: (2) Portal vein obstruction: PLAN: Plan Liver masses * Concern for neoplastic process. Possibilities include hepatocellular carcinoma, colon cancer, cholangiocarcinoma amongst many other possibilities. * Plan is for CT-guided biopsy which is scheduled for 1200 today. * Check CEA, CA 19-9 tumor markers * Consult gastroenterology. * Discussed with the patient that biopsy results will take roughly about a week to get back and he will need to follow-up with oncology as outpatient to get further staging. Portal vein obstruction * Secondary liver masses * No plans for surgery but will consult vascular surgery for recommendations. * no anticoagulation given subcapsular hematoma at this time. Unclear timing when would be able to start. Subcapsular hematoma * 2/2 liver biopsy * now with flank ecchymosis. recheck CT. * pain worse. continue PRN oxycodone, hydromorphone. Add scheduled oxy. Abdominal pain * Likely secondary to above as no other etiology was identified on the CAT scan. * Pain control. Hepatitis B: continue with emtricitabine/tenofovir HIV: Continue with darunavir/Cobicistat. Follow-up with infectious disease at [facility] Diabetes mellitus type 2 * Recently diagnosed, uncontrolled. * Hold metformin for now * Sliding scale insulin * A1c 11.2 * start glargine 20 VTE prophylaxis: SCDs Charges/Coding Visit Charges Inpatient E&M: 14428 Subs Hosp L2
[2023-09-12 09:31] LABS: ALB/GLOB Ratio 0.5 RATIO (0.9-2.4); AST(SGOT) 122 U/L (15-37); Alanine Aminotransfer ALT/SGPT 41 U/L (16-61); Albumin, Serum 2.6 g/dL (3.2-5.0); Alkaline Phosphatase 133 U/L (45-117); Anion Gap 6 (5-15); BUN 25 mg/dL (7-18); BUN/Creat Ratio 17.2 RATIO (10-20); Calcium,Total 8.7 mg/dL (8.5-10.1); Chloride 98 mmol/L (98-107); Creatinine, Serum 1.45 mg/dL (0.70-1.30); EST Glomerular Filtration Rate 54 mL/min (>60); Est Glom Filt Rate - Afr Amer 65 mL/min (>60); Estimated Creatinine Clearance 62.75 ml/min; Globulin 5.2 g/dL (2.2-4.2); Glucose 309 mg/dL (74-106); Potassium 4.7 mmol/L (3.5-5.1); Protein, Total 7.8 g/dL (6.4-8.2); Sodium Level 130 mmol/L (136-145)
--- NOTE | 2023-09-12 10:10 | CT_ITS ---
STUDY: CT ABDOMEN AND PELVIS WITHOUT CONTRAST REASON FOR EXAM: Male, 52 years old. Abdominal pain. subcapsular hematoma. RADIATION DOSAGE (If Supplied By Facility): CTDIvol = ( 10.76 ) mGy, DLP = ( 679.90 ) mGycm TECHNIQUE: Transaxial images were obtained from the dome of the diaphragm to the symphysis pubis without oral contrast, and without intravenous contrast. Sagittal and coronal images were reconstructed. Individualized dose optimization techniques were used for this CT. COMPARISON: Comparison is made with prior examination dated September 11, 2023. FINDINGS: Linear atelectasis at the left lung base. Coronary artery calcification. The previously seen subcapsular hematoma of the liver has decreased in size. Stable hepatomegaly with diffuse abnormal densities within the liver suggestive of either metastatic disease or primary carcinoma. There is evidence of pericholecystic fluid. Small gallstones are seen along the dependent portion of the gallbladder lumen. There is mild degree of the gallbladder wall thickening. The remainder of the examination is unchanged findings suggestive of thrombus of the portal vein and lymph nodes within the mesentery. Normal bilateral adrenal glands. Normal right kidney. Normal left kidney. Normal urinary bladder. There is evidence of a increased density within the lower abdomen and upper pelvis suggestive of possible hematoma resulting from the recent liver biopsy. CT/Abdomen/Pelvis without Cont IMPRESSION: The previously seen subcapsular hepatic hematoma as decrease in size although findings suggestive of hematoma within the lower abdomen and pelvis. Small gallstones with pericholecystic fluid and gallbladder wall thickening. Hepatomegaly with diffuse abnormality in the liver as described. Electronically Signed: Fabian Garza MD at 11:11 EDT ,
[2023-09-12] MEDS: Lidocaine 5% Patch 1 PATCH TOPICAL (11:18)
[2023-09-12] MEDS: Insulin Glargine-YFGN 100 UNIT/ML Pen 20 UNIT SC (11:19)
--- NOTE | 2023-09-12 11:42 | CASEMGMT ---
CALI DEGROOT Assessment Face to Face with patient for initial transition planning/care coordination assessment. CALI CM introduced self and role at [facility], pt voices understanding. Pt is A&Ox4 and is resting comfortably in bed and is calm. Care providers, pharmacy, and demographics verified. Admitting dx: Liver Masses LACE Strata: 1 PCP: Darrell Banda Specialists: Germaine Andino (ID [facility]) Preferred Pharmacy: [facility] Insurance: [facility] Prescription Benefit: Yes LNOK: Cody Kaur (Friend) Living Arrangements: Pt lives alone on the 6th floor of an apartment complex with an elevator. Pt states that he uses the steps occasionally. ADLs/IADLs: Ind Transportation: Self DME: Denies all DME uses. Pt states that he was recently diagnosed with DM II. Pt states that he does not have supplies at home for this. Will follow up with Dr. Tompkins to sign Rx for BGM and supplies. HHC/SNF: Denies history or needs Pt?s goal: Home Plan: 6-Click is 24. Pt denies the need for additional therapy after DC at this time. Will follow for BGM and supplies. CM to follow for safe DC from [facility]. Ana Maria Muller RN, CM
[2023-09-12 12:10] LABS: Carbohydrate Ag 19-9 2261 746 U/mL (0-35); Carcinoembryonic Antigen 2.2 ng/mL (0.0-4.7)
[2023-09-12 12:28] LABS: Bedside Glucose 272 mg/dL (74-106)
[2023-09-12] MEDS: oxyCODONE HCl Cr 10 MG Tablet PO ×2 (12:32→21:59)
--- NOTE | 2023-09-12 17:31 | CON.PCM.SX_ITS ---
Assessment & Plan Assessment/Plan (1) Portal vein obstruction: PLAN: Plan When able to restart anticoagulation, recommend proceeding with lovenox therapy in the setting of malignancy. Reasonable to restart on an outpatient basis to allow more time for resolution of the subcapsular hematoma. No plans for vascular surgical intervention. HPI Consult Data Date of Consult: 09/13/23 HPI Narrative HPI Narrative: JOHN ESTRADA, is a 52 M who presented to the [facility] ED on 09/11/23 with abdominal pain. A CT was obtained which revealed multiple lesions in the liver concerning for malignancy/metastasis, tumor invasion with associated portal vein occlusion. He was admitted for further management. He was started on heparin for the portal vein thrombosis. He had a liver biopsy on 09/11/23 which was complicated by subcapsular hematoma for which the heparin has since been held. Patient reports it has been very difficult to control his pain. The opioid pain medications work fairly well but due to low BP he states he is not able to receive them often/consistently enough for consistent pain control. He does plan to follow-up with the cancer center as an outpatient for ongoing management. [facility] Medical History Hepatitis B Diabetes HIV (human immunodeficiency virus infection) Home Medications ?Medication ?Instructions ?Recorded ?Last Taken ?Type darunavir 800 mg-cobicistat 150 mg 1 tab PO DAILY HEPATITIS B 01/03/23 08/31/23 History tablet (Prezcobix) emtricitabine 200 mg-tenofovir 1 tab PO DAILY HIV 01/03/23 08/31/23 History alafenamide fumarate 25 mg tablet (Descovy) lisinopril 10 mg tablet 10 mg PO DAILY 01/03/23 08/31/23 History metformin 500 mg tablet 500 mg PO BID 08/31/23 08/31/23 History prednisone 10 mg tablet 10 mg PO UD #30 tabs 08/31/23 Unknown Rx sertraline 50 mg tablet 50 mg PO DAILY 08/31/23 08/31/23 History Allergy/AdvReac Type Severity Reaction Status Date / Time morphine Allergy Hives Verified 09/11/23 01:18 Family History (Updated 09/11/23 @ 08:[address] Daniel Tompkins DO) Father Cancer Surgical History Hx of arthroscopy of right knee Social History (Updated 09/11/23 @ 08:[address] Daniel Tompkins DO) Smoking Status: Heavy Smoker (>10/day) alcohol intake: former Physical Exam Const alert and oriented x3 General Appearance: cooperative HEENT normocephalic, head/scalp atraumatic and external nose normal Eyes EOMs intact bilaterally General Eye: normal appearance of both eyes Neck General: normal visual inspection Resp normal respiratory effort Effort and Inspection: able to speak in complete sentences Cardio Rate: regular rate Rhythm: regular rhythm Extremity normal to inspection Skin no rashes or lesions noted Neuro CN's II-XII intact bilaterally Psych mental status grossly normal and affect normal Appearance: grossly normal Lab / Micro Data 09/13/23 05:18 09/13/23 05:18 Labs: Laboratory Results - last 24 hr 09/11/23 11:30: Carcinoembryonic Ag 2.2, CA 19-9 Antigen 746 H, CA 19-9 Serial Monitor Not Reportable 09/11/23 21:14: POC Glucose 301 H 09/12/23 06:10: WBC 15.5 H, RBC 4.21 L, Hgb 12.8 L, Hct 39.3 L, MCV 93.3, MCH 30.4, MCHC 32.6, RDW Std Deviation 44.1 H, RDW Coeff of Garcia 12.8, Plt Count 266, MPV 11.2, Immature Gran % (Auto) 0.500, Neut % (Auto) 79.9 H, Lymph % (Auto) 10.2 L, [place] % (Auto) 8.2, Eos % (Auto) 0.9, Baso % (Auto) 0.3, Absolute Neuts (auto) 12.4 H, Absolute Lymphs (auto) 1.58, Nucleated RBC % 0, Sodium 130 L, Potassium 4.7, Chloride 98, Carbon Dioxide 26.0, Anion Gap 6, BUN 25 H, C reatinine 1.45 H, Estim Creat Clear Calc 62.75, Est GFR (MDRD) Af Amer 65, Est GFR (MDRD) Non-Af 54 L, BUN/Creatinine Ratio 17.2, Glucose 309 H, Calcium 8.7, T otal Bilirubin 2.80 H, AST 122 H, ALT 41, Alkaline Phosphatase 133 H, Total Protein 7.8, Albumin 2.6 L, Globulin 5.2 H, Albumin/Globulin Ratio 0.5 L 09/12/23 06:22: POC Glucose 302 H 09/12/23 12:05: POC Glucose 272 H Imaging Radiology Impression Abdomen/Pelvis CT 09/12/23 10:10 IMPRESSION: The previously seen subcapsular hepatic hematoma as decrease in size although findings suggestive of hematoma within the lower abdomen and pelvis. Small gallstones with pericholecystic fluid and gallbladder wall thickening. Hepatomegaly with diffuse abnormality in the liver as described. Electronically Signed: Fabian Garza MD at 11:11 EDT ,
[2023-09-12] MEDS: Acetaminophen 325 MG Tablet 650 MG PO (17:34)
[2023-09-12 17:53] LABS: Bedside Glucose 333 mg/dL (74-106)
[2023-09-12 22:28] LABS: Bedside Glucose 243 mg/dL (74-106)
[2023-09-13] VITALS (8 sets, daily range): BP systolic 86–114; BP diastolic 55–77; PULSE 82–110; RESP 14–16; TEMP 36.7–36.9; O2SAT 93–99
[2023-09-13] MEDS: Acetaminophen 325 MG Tablet 650 MG PO (02:05)
[2023-09-13] MEDS: oxyCODONE 5 MG Tablet 10 MG PO ×2 (02:05→13:53)
[2023-09-13] MEDS: Insulin Lispro 100 UNIT/ML INSULN.PEN SC ×2 (06:07→12:08)
[2023-09-13] MEDS: 0.9% Saline Lock 10 ML Syringe IV ×2 (06:19→08:54)
[2023-09-13] MEDS: HYDROmorphone 1 MG/ML Syringe IV (06:20)
[2023-09-13 06:28] LABS: Absolute Lymphocyte Count 1.56 X10^3/uL (0.83-4.51); Absolute Neutrophil Count 9.8 X10^3/uL (2.0-7.7); Basophil# 0.02 X10^3/uL; Basophil% 0.2 % (0-1); Eosinophil# 0.05 X10^3/uL; Eosinophils% 0.4 % (0-5); Hematocrit 31.7 % (40-54); Hemoglobin 10.4 g/dL (13.0-16.5); Lymphocyte # 1.56 X10^3/ul (0.83-4.51); Lymphocyte % 12.1 % (19-41); Mean Corp Hgb Conc 32.8 g/dL (32-36); Mean Corpuscular Hgb 30.1 pg (27.0-32.0); Mean Corpuscular Volume 91.9 fL (80-94); Mean Platelet Vol. 11.4 fl (6.2-12.0); Monocyte# 1.36 X10^3/uL; Monocyte% 10.5 % (0-10); NRBC Flagged by Analyzer 0 % (0-5); Neutrophil # 9.81 X10^3/uL (2.7-7.7); Platelet Count 178 K/mm3 (150-450); RBC Distribution Width CV 12.8 % (11.6-14.6); RBC Distribution Width SD 42.7 fl (35.1-43.9); Red Blood Count 3.45 M/mm3 (4.6-6.2); White Blood Count 12.9 K/mm3 (4.4-11.0)
[2023-09-13 06:33] LABS: Bedside Glucose 298 mg/dL (74-106)
[2023-09-13 06:58] LABS: ALB/GLOB Ratio 0.5 RATIO (0.9-2.4); AST(SGOT) 140 U/L (15-37); Alanine Aminotransfer ALT/SGPT 59 U/L (16-61); Albumin, Serum 2.3 g/dL (3.2-5.0); Alkaline Phosphatase 151 U/L (45-117); Anion Gap 9 (5-15); BUN 52 mg/dL (7-18); Calcium,Total 8.4 mg/dL (8.5-10.1); Chloride 96 mmol/L (98-107); Creatinine, Serum 2.08 mg/dL (0.70-1.30); EST Glomerular Filtration Rate 36 mL/min (>60); Est Glom Filt Rate - Afr Amer 43 mL/min (>60); Estimated Creatinine Clearance 43.74 ml/min; Globulin 4.7 g/dL (2.2-4.2); Glucose 265 mg/dL (74-106); Potassium 4.6 mmol/L (3.5-5.1); Sodium Level 127 mmol/L (136-145)
--- NOTE | 2023-09-13 08:16 | PN.HOSP_ITS ---
Reason for Visit Reason for Visit: Diagnoses Portal vein thrombosis (09/11/23) Hepatomegaly, not elsewhere classified (09/11/23) Subjective Subjective Feeling better. Eating better and drinking. Now urinating. Objective Data Objective Data Vital Signs: Vital Signs Temp Pulse Resp BP Pulse Ox O2 Del Method O2 Flow Rate 36.8 C 95 16 91/59 L 97 Room Air 2 09/13/23 04:00 09/13/23 04:00 09/13/23 04:00 09/13/23 04:00 09/13/23 04:00 09/13/23 04:00 09/11/23 13:15 Oxygen Flow Rate (L/min) 2 Oxygen Delivery Method Room Air Weight: 80.4 kg Body Mass Index (BMI) 24.7 Intake & Output: Intake and Output for Last 24 Hours 09/11/23 09/12/23 09/13/23 23:59 23:59 23:59 Intake Total 1019.1 / 1019.1 1130 / 1630 600 / 600 Balance 1019.1 / 1019.1 1130 / 1630 600 / 600 Lab / Micro Data 09/13/23 11:45 09/13/23 12:08 Labs: Laboratory Results - last 24 hr 09/11/23 11:30: Carcinoembryonic Ag 2.2, CA 19-9 Antigen 746 H, CA 19-9 Serial Monitor Not Reportable 09/12/23 06:10: Sodium 130 L, Potassium 4.7, Chloride 98, Carbon Dioxide 26.0, Anion Gap 6, BUN 25 H, Creatinine 1.45 H, Estim Creat Clear Calc 62.75, Est GFR (MDRD) Af Amer 65, Est GFR (MDRD) Non-Af 54 L, BUN/Creatinine Ratio 17.2, G lucose 309 H, Calcium 8.7, Total Bilirubin 2.80 H, AST 122 H, ALT 41, Alkaline Phosphatase 133 H, Total Protein 7.8, Albumin 2.6 L, Globulin 5.2 H, A lbumin/Globulin Ratio 0.5 L 09/12/23 12:05: POC Glucose 272 H 09/12/23 16:40: POC Glucose 333 H 09/12/23 22:03: POC Glucose 243 H 09/13/23 05:18: WBC 12.9 H, RBC 3.45 L, Hgb 10.4 L, Hct 31.7 L, MCV 91.9, MCH 30.1, MCHC 32.8, RDW Std Deviation 42.7, RDW Coeff of Garcia 12.8, Plt Count 178, MPV 11.4, Immature Gran % (Auto) 0.800, Neut % (Auto) 76.0 H, Lymph % (Auto) 12.1 L, [place] % (Auto) 10.5 H, Eos % (Auto) 0.4, Baso % (Auto) 0.2, Absolute Neuts (auto) 9.8 H, Absolute Lymphs (auto) 1.56, Nucleated RBC % 0, Sodium 127 L , Potassium 4.6, Chloride 96 L, Carbon Dioxide 22.0, Anion Gap 9, BUN 52 H, C reatinine 2.08 H, Estim Creat Clear Calc 43.74, Est GFR (MDRD) Af Amer 43 L, Est GFR (MDRD) Non-Af 36 L, BUN/Creatinine Ratio 25.0 H, Glucose 265 H, Calcium 8.4 L, Total Bilirubin 3.50 H, AST 140 H, ALT 59, Alkaline Phosphatase 151 H, Total Protein 7.0, Albumin 2.3 L, Globulin 4.7 H, Albumin/Globulin Ratio 0.5 L 09/13/23 06:06: POC Glucose 298 H Radiography Diagnostic Testing: Radiology Impression Abdomen/Pelvis CT 09/12/23 10:10 IMPRESSION: The previously seen subcapsular hepatic hematoma as decrease in size although findings suggestive of hematoma within the lower abdomen and pelvis. Small gallstones with pericholecystic fluid and gallbladder wall thickening. Hepatomegaly with diffuse abnormality in the liver as described. Electronically Signed: Fabian Garza MD at 11:11 EDT , Physical Exam Const alert and no apparent distress HEENT head/scalp atraumatic and moist oral mucous membranes Resp normal respiratory effort, no retractions, no use of accessory muscles and clear to auscultation bilaterally Cardio regular rate, regular rhythm, S1 normal heart sound and S2 normal heart sound GI normal to inspection, nondistended, normoactive bowel sounds, soft to palpation, non-tender and non-distended Neuro Sensorium / Orientation: awake and alert Assessment & Plan Assessment/Plan (1) Liver masses: (2) Portal vein obstruction: PLAN: Plan Liver masses * Concern for neoplastic process. Possibilities include hepatocellular carcinoma, colon cancer, cholangiocarcinoma amongst many other possibilities. * Plan is for CT-guided biopsy which is scheduled for 1200 today. * Check CEA, CA 19-9 tumor markers * Consult gastroenterology. * Discussed with the patient that biopsy results will take roughly about a week to get back and he will need to follow-up with oncology as outpatient to get further staging. * Follow up with [facility] oncology. Portal vein obstruction * Secondary liver masses * No plans for surgery but will consult vascular surgery for recommendations. * no anticoagulation given subcapsular hematoma at this time. I would want the patient to wait a least a week and have blood count to ensure that his hemoglobin is stable. Unclear timing when would be able to start. Subcapsular hematoma * 2/2 liver biopsy * pain worse. continue PRN oxycodone, hydromorphone. Add scheduled oxy. Abdominal pain * Likely secondary to above as no other etiology was identified on the CAT scan. * Pain control. Acute blood loss anemia * Hg dropped from 13.7 to 10.4. * 2/2 subcapsular hematoma. I suspect blood in abdomen is not spontaneous, but rather from the subcapsular hematoma * recheck this afternoon to see if stable. MARLEN * Creatinine has gone from 0.82 to 2.08. Improved after IVF. . Hepatitis B: continue with emtricitabine/tenofovir HIV: Continue with darunavir/Cobicistat. Follow-up with infectious disease at [facility] Diabetes mellitus type 2 * Recently diagnosed, uncontrolled. * Hold metformin for now * Sliding scale insulin * A1c 11.2 * start glargine 20 VTE prophylaxis: SCDs
[2023-09-13] MEDS: 0.9% Normal Saline (1000mL) 1,000 ML 150 ML IV (08:53)
[2023-09-13] MEDS: DARUNAVIR/COBICISTAT 1 EACH TABLET PO (08:54)
[2023-09-13] MEDS: EMTRICITABINE/TENOFOV ALAFENAM 1 EACH TABLET PO (08:54)
[2023-09-13] MEDS: Lidocaine 5% Patch 1 PATCH TOPICAL (10:28)
[2023-09-13] MEDS: Lactulose 20 GM/30 ML UDC PO (10:29)
[2023-09-13] MEDS: oxyCODONE HCl Cr 10 MG Tablet PO (10:29)
[2023-09-13] MEDS: Insulin Glargine-YFGN 100 UNIT/ML Pen 20 UNIT SC (10:29)
[2023-09-13 11:28] LABS: Bedside Glucose 302 mg/dL (74-106)
[2023-09-13 11:49] LABS: Hematocrit 30.6 % (40-54); Hemoglobin 10.4 g/dL (13.0-16.5)
[2023-09-13 12:07] LABS: Bedside Glucose 363 mg/dL (74-106)
[2023-09-13 12:26] LABS: Anion Gap 8 (5-15); BUN 50 mg/dL (7-18); BUN/Creat Ratio 31.1 RATIO (10-20); Calcium,Total 8.3 mg/dL (8.5-10.1); Chloride 98 mmol/L (98-107); Creatinine, Serum 1.61 mg/dL (0.70-1.30); EST Glomerular Filtration Rate 48 mL/min (>60); Est Glom Filt Rate - Afr Amer 58 mL/min (>60); Estimated Creatinine Clearance 56.51 ml/min; Glucose 382 mg/dL (74-106); Potassium 4.6 mmol/L (3.5-5.1); Sodium Level 127 mmol/L (136-145)
--- NOTE | 2023-09-13 12:56 | DS.PCM_ITS ---
Providers Date of Admission: 09/11/23 Primary Care Physician: Dr. Darrell Banda MD Consultations 09/11/23 09:08 Consult: Gastroenterology Routine Consulting Provider: [facility] Reason for Consult: liver masses EMERGENT Consult: No Notified: Yes Date Notified: 09/11/23 Time Notified: 07:55 Method of Notification: ED Physician Initiated Consult: Interventional Radiology Routine Consulting Provider: Fabian Garza Reason for Consult: liver biopsy EMERGENT Consult: No Notified: No Date Notified: 09/11/23 Time Notified: 07:55 Consult: Vascular Surgery Routine Consulting Provider: Daniel Sahu Reason for Consult: portal vein occlusion EMERGENT Consult: No Notified: Yes Date Notified: 09/11/23 Time Notified: 07:56 Method of Notification: ED Physician Initiated Reason For Visit: LIVER MASSES Diagnosis Discharge Diagnosis (1) Liver masses: Status: Acute Code(s): R16.0 - Hepatomegaly, not elsewhere classified (2) Portal vein obstruction: Status: Acute Code(s): I81 - Portal vein thrombosis Plan Liver masses * Concern for neoplastic process. Possibilities include hepatocellular carcinoma, colon cancer, cholangiocarcinoma amongst many other possibilities. * Plan is for CT-guided biopsy which is scheduled for 1200 today. * Check CEA, CA 19-9 tumor markers * Consult gastroenterology. * Discussed with the patient that biopsy results will take roughly about a week to get back and he will need to follow-up with oncology as outpatient to get further staging. * Follow up with [facility]. Portal vein obstruction * Secondary liver masses * No plans for surgery but will consult vascular surgery for recommendations. * no anticoagulation given subcapsular hematoma at this time. I would want the patient to wait a least a week and have blood count to ensure that his hemoglobin is stable. Unclear timing when would be able to start. Subcapsular hematoma * 2/2 liver biopsy * pain worse. continue PRN oxycodone, hydromorphone. Add scheduled oxy. Abdominal pain * Likely secondary to above as no other etiology was identified on the CAT scan. * Pain control. Acute blood loss anemia * Hg dropped from 13.7 to 10.4. * 2/2 subcapsular hematoma. I suspect blood in abdomen is not spontaneous, but rather from the subcapsular hematoma * recheck this afternoon to see if stable. MARLEN * Creatinine has gone from 0.82 to 2.08. Improved after IVF. . Hepatitis B: continue with emtricitabine/tenofovir HIV: Continue with darunavir/Cobicistat. Follow-up with infectious disease at [facility] Diabetes mellitus type 2 * Recently diagnosed, uncontrolled. * Hold metformin for now * Sliding scale insulin * A1c 11.2 * start glargine 20 VTE prophylaxis: SCDs Medications at Discharge Home Medications darunavir 800 mg-cobicistat 150 mg tablet (Prezcobix) 1 tab PO DAILY HEPATITIS B 01/03/23 emtricitabine 200 mg-tenofovir alafenamide fumarate 25 mg tablet (Descovy) 1 tab PO DAILY HIV 01/03/23 metformin 500 mg tablet 500 mg PO BID 08/31/23 prednisone 10 mg tablet 10 mg PO UD #30 tabs 08/31/23 acetaminophen 500 mg capsule 1,000 mg (2 x 500 mg) PO Q8H PRN pain #90 caps 09/13/23 insulin glargine-yfgn 100 unit/mL (3 mL) subcutaneous pen 20 unit (0.2 mL) subcut DAILY #15 mL 09/13/23 lidocaine 4 % topical patch 1 patch topical DAILY PRN pain #30 ea 09/13/23 oxycodone 5 mg tablet 10 mg (2 x 5 mg) PO Q4H PRN PRN Pain Score 4-10 3 days #30 tabs 09/13/23 pen needle, diabetic 29 gauge x 1/2 #100 ea 09/13/23 Hospital Course Operations - (CT-guided liver biopsy. ) Summary of Care Provided Minutes Spent on Discharge: 42 Hospital Course: Patient presents with abdominal pain. He was found to have innumerable masses in his liver concerning for malignancy. Patient underwent a biopsy of his liver same day but developed a subcapsular hematoma. The hematoma bled considerably where he dropped his hemoglobin from 13.7-10.4. CAT scan showed improvement of the subcapsular hematoma but there was admitted lower in his abdomen. Patient had portal vein obstruction due to the cancer and was recommended by vascular surgery to be on anticoagulation. However, given the bleeding, we can hold off on any anticoagulation until his hemoglobin can be verified to be stable as outpatient. Patient is to initiate anticoagulation vascular surgery is recommending weight-based enoxaparin. Patient did have acute kidney injury was here and that was likely due to dehydration from lack of oral intake. That responded well to IV fluids. Patient will follow-up with [facility] oncology for evaluation of the final biopsy results and what recommendations they may have. Patient is already expressing desire for more palliation but will wait on his input from oncology. Patient will require pain medications for discharge. Patient recently diagnosed with diabetes and was metformin, however, his A1c was 11.2. Patient will require insulin upon discharge. Weight / BMI Weight Weight: 80.4 kg Body Mass Index (BMI) 24.7 ABG / Lab / Microbiology Data 09/13/23 11:45 09/13/23 12:08 Laboratory: Laboratory Results - last 24 hr 09/11/23 11:30: CA 19-9 Serial Monitor Not Reportable 09/12/23 16:40: POC Glucose 333 H 09/12/23 22:03: POC Glucose 243 H 09/13/23 05:18: WBC 12.9 H, RBC 3.45 L, Hgb 10.4 L, Hct 31.7 L, MCV 91.9, MCH 30.1, MCHC 32.8, RDW Std Deviation 42.7, RDW Coeff of Garcia 12.8, Plt Count 178, MPV 11.4, Immature Gran % (Auto) 0.800, Neut % (Auto) 76.0 H, Lymph % (Auto) 12.1 L, [place] % (Auto) 10.5 H, Eos % (Auto) 0.4, Baso % (Auto) 0.2, Absolute Neuts (auto) 9.8 H, Absolute Lymphs (auto) 1.56, Nucleated RBC % 0, Sodium 127 L , Potassium 4.6, Chloride 96 L, Carbon Dioxide 22.0, Anion Gap 9, BUN 52 H, C reatinine 2.08 H, Estim Creat Clear Calc 43.74, Est GFR (MDRD) Af Amer 43 L, Est GFR (MDRD) Non-Af 36 L, BUN/Creatinine Ratio 25.0 H, Glucose 265 H, Calcium 8.4 L, Total Bilirubin 3.50 H, AST 140 H, ALT 59, Alkaline Phosphatase 151 H, Total Protein 7.0, Albumin 2.3 L, Globulin 4.7 H, Albumin/Globulin Ratio 0.5 L 09/13/23 06:06: POC Glucose 298 H 09/13/23 10:24: POC Glucose 302 H 09/13/23 11:45: Hgb 10.4 L, Hct 30.6 L 09/13/23 11:48: POC Glucose 363 H 09/13/23 12:08: Sodium 127 L, Potassium 4.6, Chloride 98, Carbon Dioxide 21.0, Anion Gap 8, BUN 50 H, Creatinine 1.61 H, Estim Creat Clear Calc 56.51, Est GFR (MDRD) Af Amer 58 L, Est GFR (MDRD) Non-Af 48 L, BUN/Creatinine Ratio 31.1 H, G lucose 382 H, Calcium 8.3 L D/C Instructions Discharge Diet: 2000 Calorie Control Diet Meaningful Use Info Meaningful Use Meaningful Use Diagnoses (Choose all that apply): None applicable Ischemic Stroke Statin Dosing Therapy Reference: STATIN DOSE THERAPY REFERENCE: * Patients > 75 years receive moderate or high dose statin therapy. * Patients 75 years or YOUNGER should receive HIGH intensity statin dose unless contraindicated. You will be required to document reason for non-treatment if statin daily dose does not meet guidelines. HIGH DOSE STATIN THERAPY DAILY Atorvastatin > than or = to 40 mg Rosuvastatin > than or = to 20 mg Amlodipine + Atorvastatin > than or = to 2.5/40 mg Ezetimibe + Simvastatin 10/80 mg Simvastatin 80mg Discharge Plan Admission Admit Date/Time: 09/11/23 07:49 Primary Reason for Your Visit: liver mass Attending Provider: Daniel Tompkins Primary Care Provider: Darrell Banda Consulting Providers: Daniel Sahu Instructions Patient Instructions: AIDE LEIVA Biopsy Liver Dc, AIDE LEIVA Procedural Sedation Additional Instructions / Restrictions: Follow-up with clinic clinic oncology with Dr. Cox or Dr. Han at your earliest convenience. They can discuss with you the biopsy results and treatment options. Your blood sugars are very poorly controlled despite the metformin. Started you on long-acting insulin to be taken once a day. Please check your sugar daily and as needed. Discharge Orders/Prescriptions Prescriptions: New insulin glargine-yfgn 100 unit/mL (3 mL) Insulin Pen 20 unit subcut DAILY Qty: 15 0RF oxycodone 5 mg Tablet 10 mg PO Q4H PRN PRN (Reason: Pain Score 4-10) 3 Days Qty: 30 0RF lidocaine 4 % adhesive patch,medicated 1 patch topical DAILY PRN (Reason: pain) Qty: 30 0RF acetaminophen 500 mg capsule 1,000 mg PO Q8H PRN (Reason: pain) Qty: 90 0RF (DME) pen needle, diabetic 29 gauge x 1/2 needle See Rx Instructions .Route Qty: 100 0RF Rx Instructions: As directed Continued Descovy 200-25 mg tablet 1 tab PO DAILY Prezcobix 800-150 mg-mg tablet 1 tab PO DAILY Rx Instructions: must administer with a meal/food metformin 500 mg tablet 500 mg PO BID prednisone 10 mg tablet 10 mg PO UD Qty: 30 0RF Rx Instructions: Take 4 tablets daily for 3 days, then 3 daily for 3 days, then 2 daily for 3 days, then 1 a day for 3 days Discontinued lisinopril 10 mg tablet 10 mg PO DAILY Patient Comments: take 1 tablet by mouth once daily sertraline 50 mg tablet 50 mg PO DAILY Other Ambulatory Orders: Glucometer (Routine) Timeframe: 1 Day Location: Determined by Patient Ordered By: Dr. Daniel Tompkins Referrals / Follow Up: [facility] [Provider Group] - Within 1 Week Darrell Banda MD [Primary Care Provider] - Within 2 Weeks Disposition Disposition (needs filled in before D/C Order can be placed): Home, Self Care Charges/Coding Visit Charges Inpatient E&M: 99749 Disch Hosp >30min
--- NOTE | 2023-09-13 14:49 | PHA.DC.MC.R ---
Pharmacy [facility] Pharmacy Service has performed discharge medication reconciliation and counseling for this patient. The patient's discharge medication list was reviewed for discrepancies and discrepancies were resolved. The patient was counseled on the following discharge medications and changes in medications for homegoing were reviewed. 1. GLARGINE 2. OXYCODONE 3. LIDOCAINE PATCH The Reason for Use, instructions for use, and potential side effects were reviewed for all new medications. The patient's questions regarding all of their medications were answered. The patient was able to verbally demonstrate an understanding of their discharge medications. the patient was counselled by Enzo Barnes PharmD Candidate Medications at Discharge Home Medications darunavir 800 mg-cobicistat 150 mg tablet (Prezcobix) 1 tab PO DAILY HEPATITIS B 01/03/23 emtricitabine 200 mg-tenofovir alafenamide fumarate 25 mg tablet (Descovy) 1 tab PO DAILY HIV 01/03/23 metformin 500 mg tablet 500 mg PO BID 08/31/23 prednisone 10 mg tablet 10 mg PO UD #30 tabs 08/31/23 acetaminophen 500 mg capsule 1,000 mg (2 x 500 mg) PO Q8H PRN pain #90 caps 09/13/23 insulin glargine-yfgn 100 unit/mL (3 mL) subcutaneous pen 20 unit (0.2 mL) subcut DAILY #15 mL 09/13/23 lidocaine 4 % topical patch 1 patch topical DAILY PRN pain #30 ea 09/13/23 oxycodone 5 mg tablet 10 mg (2 x 5 mg) PO Q4H PRN PRN Pain Score 4-10 3 days #30 tabs 09/13/23 pen needle, diabetic 29 gauge x 1/2 #100 ea 09/13/23
--- NOTE | 2023-09-13 14:50 | CASEMGMT ---
Order for pt DC placed. Rx for BGM and supplies signed by Dr. Tompkins. Copy placed in pt chart. CALI CM to pt room at this time. Rx given to the pt and educated pt to bring to his pharmacy. Pt states understanding. Pt states that he still feels safe discharging home. Pt denies the need for HHC or OP therapy. Pt states that he is ready for DC. Pt denies further questions or concerns and thanks this CALI DEGROOT. This RN CM updated the pt RN.
--- NOTE | 2023-09-13 15:05 | CHAPLAIN ---
Type of Pastoral Visit _x__ Initial Visit ___ Follow-up Visit ___ On-call Visit ___ General Patient Visit ___ Spiritual Assessment ___ Family Conference ___ Bereavement ___ Rapid Response ___ Code Blue ___ Other (describe below) Pastoral Care Referral From _x__ Patient ___ Family ___ Nurse ___ Physician ___ Die Cleaner ___ Furniture Mover Helper ___ Other (describe below) Sacrament/Intervention _x__ Active listening ___ Anointing ___ Mandaeism ___ Bereavement ___ Communion ___ Lluvia exploration ___ ___ Life review _x__ Prayer ___ Reconciliation ___ Sacrament of Sick _x__ Supportive presence ___ Wedding ___ Other (describe below) Pastoral Comments patient is welcoming but also admits that he is having pain and that visit might best be short; pt acknowledges that they are almost sure this is cancer and I am accepting of it because it is what it is and you deal with what you are given; pt says that his greatest concerns are just feeling better because I'm tired of this pain and my 87 year old mother that I take care of; pt requests a prayer as the only and best thing you can do
== END 2023-09-13 16:06 | disposition home or self-care (01) | DRG 977 ==
LOC: ED 07:07 → PCU 08:16
PROVIDERS: Emergency Provider Emergency Medicine; PCP Family Medicine
DX: R16.0 Hepatomegaly, not elsewhere classified (principal); B20 Human immunodeficiency virus [HIV] disease; I81 Portal vein thrombosis; N17.9 Acute kidney failure, unspecified; B19.10 Unspecified viral hepatitis B without hepatic coma; D62 Acute posthemorrhagic anemia; E11.9 Type 2 diabetes mellitus without complications; F17.200 Nicotine dependence, unspecified, uncomplicated; Z79.84 Long term (current) use of oral hypoglycemic drugs
CPT/HCPCS: 36415; 74150; 74176; 74177; 77012; 80048; 80053; 81001; 82378; 82962; 83036; 85014; 85018; 85025; 85610; 85730; 86301; 88172; 88305; 88307; 88313; 88341; 88342; 99156; 99157; 99284; J7030; J7050; Q9967; A4216; J2405

== ENCOUNTER → 2023-10-29 | Outpatient (CLI) | payer OTHER, SELFPAY ==
[2023-10-29] MEDS: Lidocaine 2% (20 ml mdv) 20 ML Vial INFILT (08:25)
[2023-10-29 08:30] VITALS: BP 125/91; PULSE 113; RESP 16; O2SAT 96
[2023-10-29 08:45] VITALS: BP 134/82; PULSE 111; RESP 16; O2SAT 96
[2023-10-29 09:00] VITALS: BP 121/88; PULSE 110; RESP 16; O2SAT 97
[2023-10-29 09:11] VITALS: BP 127/64; PULSE 109; RESP 16; TEMP 36.5; O2SAT 95
--- NOTE | 2023-10-29 09:16 | PCM.OP.PRO ---
Procedure Report Date of Procedure: 10/29/23 Assessment & Plan Assessment/Plan (1) Ascites: QUALIFIERS: Ascites type: other type Qualified Code(s): R18.8 - Other ascites PLAN: PROCEDURE: Ultrasound guided paracentesis ORDERING PROVIDER: Evonne Aquino CNP INDICATION: Male, 53 years old. Ascites. PROVIDER: CELINE Calzada TECHNIQUE: The risks, benefits, and alternatives to the procedure were explained to the patient. The specific risks of bleeding, infection, and damage to bowel were detailed and accepted. Witnessed informed consent was obtained. The abdomen was ultrasonographically surveyed. An appropriate pocket of fluid was identified in the right lower quadrant. The skin was prepped with chlorhexidine and sterile field established. 2% lidocaine was used for local anesthetic. Using ultrasound guidance, the peritoneal cavity was accessed with a 5-Moroccan paracentesis needle/catheter system. The trocar was removed. A total of 6500 ml of clear yellow colored fluid was removed from the peritoneal cavity. The catheter was removed and a sterile dressing was applied. The procedure was well tolerated. IMPRESSION: Successful ultrasound-guided paracentesis with right lower quadrant access site. Procedures Radiology Radiology US Procedures: 26016 Paracentesis
== END | disposition home or self-care (01) ==
PROVIDERS: PCP Family Medicine
DX: C22.9 Malignant neoplasm of liver, not specified as primary or secondary (principal)
CPT/HCPCS: 49083

== ENCOUNTER → 2023-11-05 | Outpatient (CLI) | payer OTHER, SELFPAY ==
[2023-11-05 09:45] VITALS: BP 111/57; PULSE 114; RESP 16; O2SAT 94
[2023-11-05] MEDS: Lidocaine 2% (20 ml mdv) 20 ML Vial INFILT (09:50)
[2023-11-05 10:00] VITALS: BP 101/61; PULSE 112; RESP 16; O2SAT 94
[2023-11-05 10:15] VITALS: BP 92/54; PULSE 106; RESP 16; O2SAT 94
[2023-11-05 10:23] VITALS: BP 104/56; PULSE 110; RESP 16; O2SAT 95
--- NOTE | 2023-11-05 11:00 | PCM.OP.PRO ---
Procedure Report Date of Procedure: 11/05/23 Assessment & Plan Assessment/Plan (1) Ascites: QUALIFIERS: Ascites type: other type Qualified Code(s): R18.8 - Other ascites PLAN: PROCEDURE: Ultrasound guided paracentesis ORDERING PROVIDER: Delia Tubbs CNP INDICATION: Male, 53 years old. Malignant ascites. PROVIDER: CELINE Calzada TECHNIQUE: The risks, benefits, and alternatives to the procedure were explained to the patient. The specific risks of bleeding, infection, and damage to bowel were detailed and accepted. Witnessed informed consent was obtained. The abdomen was ultrasonographically surveyed. An appropriate pocket of fluid was identified in the right lower quadrant. The skin was prepped with chlorhexidine and sterile field established. 2% lidocaine was used for local anesthetic. Using ultrasound guidance, the peritoneal cavity was accessed with a 5-Tanzanian paracentesis needle/catheter system. The trocar was removed. A total of 6850 ml of clear yellow colored fluid was removed from the peritoneal cavity. The catheter was removed and a sterile dressing was applied. The procedure was well tolerated. IMPRESSION: Successful ultrasound-guided paracentesis with right lower quadrant access site. Procedures Radiology Radiology US Procedures: [id number] Paracentesis
== END | disposition home or self-care (01) ==
PROVIDERS: PCP Family Medicine
DX: C22.9 Malignant neoplasm of liver, not specified as primary or secondary (principal)
CPT/HCPCS: 49083